=== PATIENT | male | born 1955 | race Caucasian/White ===

== ENCOUNTER → 2016-06-03 | Outpatient (CLI) | payer BC ==
[2016-06-03 09:43] LABS: ALT 95 U/L (21-72); AST 77 U/L (17-59)
== END | disposition home or self-care (01) ==
LOC: LABWHC1 08:42
PROVIDERS: ATTEND Internal Medicine Interventional Cardiology
DX: E78.2 Mixed hyperlipidemia (principal); I10 Essential (primary) hypertension
CPT/HCPCS: 36415; 84450; 84460

== ENCOUNTER → 2016-07-15 | Outpatient (CLI) | payer BC ==
[2016-07-15 07:29] LABS: Basophils # (A) 0.1 k/uL (0-0.2); Basophils % (A) 1 %; CH 31.7; CHCM 34.8; Eosinophils # (A) 0.3 k/uL (0-0.7); Eosinophils % (A) 4 %; HCT 47.4 % (39.0-53.0); HGB 16.1 gm/dL (13.0-17.5); Luc # (Auto) 0.25; Luc % (Auto) 3; Lymphocytes # (A) 1.9 k/uL (1.0-4.8); Lymphocytes % (A) 25 %; MCH 31.1 pg (25.0-35.0); MCHC 33.9 g/dL (31.0-37.0); MCV 91.6 fL (80.0-100.0); Mean Platelet Volume 7.3; Monocytes # (A) 0.5 k/uL (0-1.0); Monocytes % (A) 6 %; Neutrophils # (A) 4.6 k/uL (1.3-7.7); Neutrophils % (A) 61 %; RBC 5.18 m/uL (4.30-5.90); RDW 13.7 % (11.5-15.5); WBC 7.6 k/uL (3.8-10.6); WBC (Perox) 8.33
[2016-07-15 07:44] LABS: ALT 132 U/L (21-72); AST 95 U/L (17-59); Alkaline Phosphatase 105 U/L (38-126); Anion Gap 12 mmol/L; Blood Urea Nitrogen 16 mg/dL (9-20); Calcium 9.3 mg/dL (8.4-10.2); Carbon Dioxide 24 mmol/L (22-30); Chloride 103 mmol/L (98-107); Cholesterol 239 mg/dL (<200); Glucose 292 mg/dL (74-99); HDL Cholesterol 38 mg/dL (40-60); Non-African American GFR(MDRD) >60 (>60 ml/min/1.73 sqM); Potassium 4.4 mmol/L (3.5-5.1); Sodium 139 mmol/L (137-145); Total Bilirubin 1.2 mg/dL (0.2-1.3); Total Protein 7.6 g/dL (6.3-8.2)
[2016-07-15 07:52] LABS: Triglycerides 577 mg/dL (<150)
[2016-07-15 08:28] LABS: Hepatitis C Virus IgG Index 0.03
[2016-07-15 08:56] LABS: Hepatitis C Virus IgG Ab Negative (Negative)
[2016-07-15 12:52] LABS: Prostate Specific Antigen 0.27 ng/mL (0.00-4.00)
== END | disposition home or self-care (01) ==
LOC: LABWHC1 07:05
PROVIDERS: ATTEND Physician Assistant
DX: Z00.00 Encounter for general adult medical examination without abnormal findings (principal)
CPT/HCPCS: 36415; 80053; 80061; 84153; 84439; 84443; 85025; 86803

== ENCOUNTER 2016-07-24 08:17 | Day surgery (SDC) | payer BC ==
[2016-07-22 14:13] VITALS: BMI 37.6
[~2016-07-24 08:17] MED LIST: DEXAMETHASONE SOD PHOSPHATE 4 MG/ML 1 ML VIAL IV ONE; FAMOTIDINE 20 MG/2 ML VIAL IV ONE; HYDROmorphone 1 MG/ML 1 ML SYRINGE IVP PRN; LIDOCAINE 1% 20 ML VIAL (10MG/ML) FOR IV START INTRADERMA PRN; MIDAZOLAM 2 MG/2 ML VIAL IV PRN; ONDANSETRON 4 MG/2 ML VIAL IVP ONE; Pre Op ABX Message 1 EACH MISC MISCELLANE ONE; SCOPOLAMINE 1.5MG/72HR PATCH TRANSDERM ONE
[2016-07-24] MEDS: OXYMETAZOLINE 0.05% NASL SPRAY 15 ML NASAL ONE ×5 (08:47→09:12)
[2016-07-24] MEDS: LACTATED RINGERS 1,000 ML IV SCH ×2 (08:58→14:30)
[2016-07-24 09:04] LABS: Glucose,Whole Blood 259 mg/dL (75-99)
[2016-07-24] MEDS ORDERED: DEXAMETHASONE SOD PHOSPHATE 10 MG/ML 1 ML VIAL IV ONE (09:07)
[2016-07-24 09:11] LABS: INR 1.3 (<1.1); Prothrombin Time 13.1 sec (9.0-12.0)
[2016-07-24] MEDS ORDERED: INSULIN LISPRO (humaLOG) 300 UNIT/3 ML VIAL SQ ONE ×3 (09:20→13:52)
[2016-07-24] MEDS ORDERED: SUCCINYLCHOLINE CHLORIDE 100 MG/5 ML SYR IV ONE (10:17)
[2016-07-24] MEDS ORDERED: LIDOCAINE 1% INJ 10MG/ML (20 ML MDV) ONE (10:17)
[2016-07-24] MEDS ORDERED: fentaNYL (PF) 50 MCG/ML 2 ML AMP ONE (10:17)
[2016-07-24] MEDS ORDERED: MIDAZOLAM 2 MG/2 ML VIAL ONE (10:17)
[2016-07-24] MEDS ORDERED: PROPOFOL 10 MG/ML 20 ML VIAL IV ONE (10:17)
[2016-07-24] MEDS ORDERED: ePHEDrine 50 MG/ML 1 ML AMP ONE (10:17)
[2016-07-24] MEDS ORDERED: BACITRACIN 500 UNIT/GM OINT 28.4 GM TUBE TOPICAL ONE (10:53)
[2016-07-24] MEDS ORDERED: EPINEPHrine 1 MG/ML (MDV) 30 ML VIAL TOPICAL ONE (10:54)
[2016-07-24] MEDS ORDERED: FLUORESCEIN STRIPS 1 MG STRIP MISCELLANE ONE (10:54)
[2016-07-24] MEDS ORDERED: LIDOCAINE 1%-EPI 1:100,000 20 ML VIAL SQ ONE ×2 (10:54)
--- NOTE | 2016-07-24 11:49 | P.OP ---
Date of Procedure: 07/24/16 Preoperative Diagnosis: Chronic sinusitis with left maxillary sinus polyp Postoperative Diagnosis: Same Procedure(s) Performed: Bilateral functional endoscopic sinus surgery with removal of a left maxillary sinus polyp and removal of widespread disease tissue throughout all sinuses. Anesthesia: GETA Surgeon: Neil Forrest Estimated Blood Loss (ml): 40 Pathology: other (Sinonasal) Condition: stable Disposition: PACU Indications for Procedure: Patient has had chronic sinusitis for a long period of time and has failed medical therapy. He has been on multiple antibiotics and get his symptoms of congestion facial pain and pressure etc. persist. After long discussion the patient is requesting sinus surgery. All risks, benefits, and alternative therapies were discussed in detail. The patient sense of smell is significantly diminished and return of the sense of smell is been guaranteed. Operative Findings: Widespread sinonasal disease with a polyp of the left maxillary sinus Description of Procedure: This patient was taken to the operative room and placed in the supine position. A general inhalation anesthetic was administered to the patient by the department of anesthesia with a functioning IV line in place. The patient was monitored throughout the entire case by the department of anesthesia. The eyes were taped shut for protection. The patient was placed in a slight reverse Trendelenburg position. The patient had previously utilize Afrin nasal spray preoperatively. The nose was evaluated and the septum lateral nasal wall and inferior turbinates were injected with lidocaine 1% with epinephrine 1 100,000 bilaterally. Approximately 10 minutes were allowed wait for full vasoconstrictive effects to take place. Attention was then paid to the middle turbinates which were brought medial. The uncinate process was visualized and reflected forward with a Meza probe. With the use of an endoscope utilizing 0 30 and 90 we perform this procedure and utilize this endoscope on a video camera throughout the entire procedure. This was with use of a Cornejo sherry scope. We then took down the uncinate process with a pediatric backbiter and a microdebrider. After the uncinate process was removed the maxillary sinuses were opened widely with use of a straight boss. We open the maxillary sinuses widely and into the maxillary sinuses with endoscopic visualization. Diseased tissue was removed from the maxillary sinuses bilaterally and the sinuses were opened bilaterally. A large polyp was removed from the left maxillary sinus After the maxillary sinuses were opened and diseased tissue was removed attention was then paid to the ethmoid bulla. From a medial to lateral position we took down the ethmoid bulla. We identified the roof of the maxillary sinus and the inferior attachment of the superior turbinate and then took down the basal lamella and into the posterior ethmoid air cells. We did a total ethmoidectomy with use of an up-biting boss. We removed all ethmoid septations bilaterally for total ethmoidectomy including the basal lamella. Excellent results were obtained. Diseased tissue was found in the ethmoid sinuses and removed. We then entered the sphenoid sinus underneath the inferior attachment of the superior turbinate. The sphenoid sinus was opened with the microdebrider and diseased tissue was removed from each sphenoid sinus. This was also done with use of endoscopic visualization. Attention was then paid to the frontal sinus where the frontal sinuses were opened with balloon assistance. We entered the frontal sinuses bilaterally we explored the frontal sinuses bilaterally, and we remove diseased tissue from the frontal sinuses bilaterally. After all sinuses were opened and all sinuses explored and all sinuses had diseased tissue removed , a Merocel sponge pack in a gloved finger was placed. This was placed under both middle turbinates.. Excellent hemostasis was obtained throughout the entire case and very low blood was noted. The skull base and orbital hyde looked good. We reinspected the sinonasal region and no bleeding was encountered. The patient was then taken to postanesthesia recovery in excellent condition. A follow-up is scheduled for next week. The patient is to contact me if there is any problems or issues.
[2016-07-24 11:58] VITALS: TEMP 98.1
[2016-07-24 12:09] LABS: Glucose,Whole Blood 349 mg/dL (75-99)
[2016-07-24 13:44] LABS: Glucose,Whole Blood 357 mg/dL (75-99)
[2016-07-24] MEDS ORDERED: metFORMIN 500 MG TAB PO STA (13:50)
[2016-07-24] MEDS ORDERED: HYDROcodone/APAP 5-325MG 1 EACH TAB PO ONE (14:20)
[2016-07-24 14:58] LABS: Glucose,Whole Blood 367 mg/dL (75-99)
[2016-07-24] MEDS: HYDROmorphone 1 MG/ML 1 ML SYRINGE IVP STA ×2 (15:05→15:14)
[2016-07-24] MEDS ORDERED: ENALAPRILAT 1.25 MG/ML 1 ML VIAL IVP STA (15:17)
[2016-07-24 15:39] VITALS: BP 147/83; PULSE 70; RESP 18
== END 2016-07-24 16:03 | disposition home or self-care (01) ==
LOC: OR 08:17
PROVIDERS: ATTEND Otolaryngology
DX: J32.4 Chronic pansinusitis (principal); J33.8 Other polyp of sinus; Z88.2 Allergy status to sulfonamides; I10 Essential (primary) hypertension; I25.2 Old myocardial infarction; I25.10 Atherosclerotic heart disease of native coronary artery without angina pectoris; E78.5 Hyperlipidemia, unspecified; G47.33 Obstructive sleep apnea (adult) (pediatric); E78.00 Pure hypercholesterolemia, unspecified; H91.90 Unspecified hearing loss, unspecified ear; E07.9 Disorder of thyroid, unspecified; M19.90 Unspecified osteoarthritis, unspecified site; Z72.0 Tobacco use; Z79.01 Long term (current) use of anticoagulants; Z79.84 Long term (current) use of oral hypoglycemic drugs; Z79.52 Long term (current) use of systemic steroids; Z79.899 Other long term (current) drug therapy; Z95.2 Presence of prosthetic heart valve; Z86.73 Personal history of transient ischemic attack (TIA), and cerebral infarction without residual deficits; Z79.51 Long term (current) use of inhaled steroids; Z95.5 Presence of coronary angioplasty implant and graft
CPT/HCPCS: 31255; 88305; 85610; J0171; J2250; J1100; J2405; J2001; J3010; J1170; J0330; J2704

== ENCOUNTER 2016-07-24 16:23 | Emergency (ER) | payer BC ==
[2016-07-24 16:49] VITALS: BP 154/84; PULSE 68; RESP 18; TEMP 98.3
[2016-07-24] MEDS ORDERED: SODIUM CHLORIDE 0.9% 1,000 ML IV ONE (16:50)
[2016-07-24 17:05] LABS: Basophils % (A) 0 %; CH 31.3; CHCM 34.4; Eosinophils # (A) 0.1 k/uL (0-0.7); Eosinophils % (A) 1 %; HCT 46.4 % (39.0-53.0); HDW 2.72; HGB 15.7 gm/dL (13.0-17.5); Luc # (Auto) 0.07; Luc % (Auto) 1; Lymphocytes # (A) 0.8 k/uL (1.0-4.8); Lymphocytes % (A) 7 %; MCH 30.9 pg (25.0-35.0); MCHC 33.9 g/dL (31.0-37.0); MCV 91.2 fL (80.0-100.0); Mean Platelet Volume 8.1; Monocytes # (A) 0.4 k/uL (0-1.0); Monocytes % (A) 4 %; Neutrophils # (A) 10.5 k/uL (1.3-7.7); Neutrophils % (A) 89 %; RBC 5.09 m/uL (4.30-5.90); RDW 13.3 % (11.5-15.5); WBC 11.8 k/uL (3.8-10.6); WBC (Perox) 11.74
[2016-07-24 17:12] LABS: Anion Gap 14 mmol/L; Blood Urea Nitrogen 22 mg/dL (9-20); Calcium 8.9 mg/dL (8.4-10.2); Carbon Dioxide 20 mmol/L (22-30); Chloride 102 mmol/L (98-107); Glucose 326 mg/dL (74-99); Non-African American GFR(MDRD) >60 (>60 ml/min/1.73 sqM); Potassium 4.7 mmol/L (3.5-5.1); Sodium 136 mmol/L (137-145)
--- NOTE | 2016-07-24 17:31 | ED ---
Recheck HPI - General Chief Complaint: Recheck/Abnormal Lab/Rx Stated Complaint: HYPERGLYCEMIA Source: patient Mode of arrival: wheelchair Limitations: no limitations - History of Present Illness Initial Comments: Patient is a 7-year-old male who presents for evaluation for hyperglycemia. Past medical history as below. Patient recently had a sinus procedure performed today. He is noted to have elevated blood glucose levels in the 300s. He has been on chronic steroids. He has a recently diagnosed history of type 2 diabetes and was placed on metformin on Thursday. He has been compliant with the medication. Per chart review, the patient has had elevated blood glucose level since May 2016. Most likely multifactorial with weights, steroids. Patient stated that he gained a significant amount of weight since retiring. He is been on and off steroids for some period of time due to his chronic sinusitis. Patient states that he feels well outside of the pain from the recent surgical procedure today. He denies any significant headaches, overwhelming thirst, chest pain, shortness of breath, palpitations, nausea, vomiting, diarrhea, increased urination, pain or burning with urination. - Related Data Home Medications Medication Instructions Recorded Confirmed Atenolol [Tenormin] 25 mg PO QAM 12/29/13 07/24/16 Warfarin Sodium 8 mg PO DAILY 12/29/13 07/24/16 Cefuroxime Axetil [Ceftin] 500 mg PO BID 07/22/16 07/24/16 Levothyroxine Sodium [Synthroid] 75 mcg PO DAILY 07/22/16 07/24/16 metFORMIN HCL [Glucophage] 500 mg PO BID 07/22/16 07/24/16 predniSONE 30 mg PO DAILY 07/22/16 07/24/16 Hydrocodone/Acetaminophen [[place] 1 - 2 tab PO Q6HR PRN 07/24/16 07/24/16 5-325] Allergies Allergy/AdvReac Type Severity Reaction Status Date / Time Sulfa (Sulfonamide Allergy Rash/Hives,SOB, Verified 07/24/16 17:10 Antibiotics) rapid heartbeat Review of Systems ROS Statement: Those systems with pertinent positive or pertinent negative responses have been documented in the HPI. ROS Other: All systems not noted in ROS Statement are negative. Past Medical History Past Medical History: Chest Pain / Angina, Diabetes Mellitus, Hyperlipidemia, Hypertension, Liver Disease, Myocardial Infarction ([place]), Sleep Apnea/CPAP/BIPAP , Thyroid Disorder Additional Past Medical History / Comment(s): hx BLOOD CLOT LT EYE, FATTY LIVER , ot states he had a staphylococcal infection that ("lasted for several years") at the time of his cardiac valve surgery which was done in [facility]. , rash on back, sepsis 2 yrs ago Last Myocardial Infarction Date:: unknown History of Any Multi-Drug Resistant Organisms: None Reported MDRO Source:: RIGHT ELBOW- STAPH INFECTION culture shows MSSA Past Surgical History: Adenoidectomy, Cardiac Valve Replacement, Cholecystectomy , Heart Catheterization, Tonsillectomy Additional Past Surgical History / Comment(s): ARTIFICIAL AORTIC VALVE 1985 , left eye tear duct surgery, left cataract Past Anesthesia/Blood Transfusion Reactions: Previous Problems w/ Anesthesia, Motion Sickness Additional Past Anesthesia/Blood Transfusion Reaction / Comment(s): severe pain for a couple months post op tear duct surgery Past Psychological History: No Psychological Hx Reported Additional Psychological History / Comment(s): . Smoking Status: Current some day smoker Past Alcohol Use History: Rare Additional Past Alcohol Use History / Comment(s): smokes occationally currently , has smoked since age 31 Past Drug Use History: None Reported - Past Family History Father Family Medical History: Cancer Additional Family Medical History / Comment(s): prostate General Exam Limitations: no limitations General appearance: alert, in no apparent distress Head exam: Present: atraumatic, normocephalic, normal inspection Eye exam: Present: normal appearance, PERRL, EOMI. Absent: scleral icterus, conjunctival injection, periorbital swelling ENT exam: Present: normal exam, mucous membranes moist, other (Packing in his nose. Moist mucous membranes.) Neck exam: Present: normal inspection. Absent: tenderness, meningismus, lymphadenopathy Respiratory exam: Present: normal lung sounds bilaterally. Absent: respiratory distress, wheezes, rales, rhonchi, stridor Cardiovascular Exam: Present: regular rate, normal rhythm, normal heart sounds. Absent: systolic murmur, diastolic murmur, rubs, gallop, clicks GI/Abdominal exam: Present: soft, normal bowel sounds. Absent: distended, tenderness, guarding, rebound, rigid Extremities exam: Present: normal inspection, full ROM, normal capillary refill. Absent: tenderness, pedal edema, joint swelling, calf tenderness Back exam: Present: normal inspection Neurological exam: Present: alert, oriented X3, CN II-XII intact Psychiatric exam: Present: normal affect, normal mood Skin exam: Present: warm, dry, intact, normal color. Absent: rash Course Vital Signs 07/24/16 16:45 Temperature 98.3 F Pulse Rate 68 Respiratory 18 Rate Blood Pressure 154/84 O2 Sat by Pulse 91 L Oximetry Medical Decision Making - Medical Decision Making Patient resents for evaluation of hyperglycemia after surgical procedure today. Known history of type 2 diabetes on metformin. Also has been on chronic steroids which also elevates his blood glucose. We'll order basic labs with IV fluids and reevaluate. 1729: Laboratory findings as below. Glucose is come down to the 320s. Patient states that he feels well. Tolerated ice chips. Had a lengthy discussion with the patient that his blood glucose will be elevated secondary to his diabetes, weight, chronic steroids. He was recently filled another prescription for steroids. Strongly encouraged that the patient watch what he eats and limit his sugar intake. There is a possibility that he may need to go on insulin therapy if his glucose continues to be elevated. We'll leave this decision to his primary care physician which she sees regularly. He will continue to take metformin. If he loses weight and is able to get off steroids his glucose should improve and may be able to get off metformin but again will delay any changes in medications to his primary care physician. Patient is comfortable with above plan and will follow-up with his primary care physician. Discussed signs and symptoms on when to return to the emergency department for further evaluation. Patient is comfortable with plan will be discharged home. Believe his pulse ox is low at 91% secondary to nasal packing. He has no dyspnea shortness of breath or cough. - Lab Data Result diagrams: 07/24/16 16:55 07/24/16 16:55 Lab Results 07/24/16 07/24/16 Range/Units 16:55 16:55 WBC 11.8 H (3.8-10.6) k/uL RBC 5.09 (4.30-5.90) m/uL Hgb 15.7 (13.0-17.5) gm/dL Hct 46.4 (39.0-53.0) % MCV 91.2 (80.0-100.0) fL MCH 30.9 (25.0-35.0) pg MCHC 33.9 (31.0-37.0) g/dL RDW 13.3 (11.5-15.5) % Plt Count 169 (150-450) k/uL Neutrophils % 89 % Lymphocytes % 7 % Monocytes % 4 % Eosinophils % 1 % Basophils % 0 % Neutrophils # 10.5 H (1.3-7.7) k/uL Lymphocytes # 0.8 L (1.0-4.8) k/uL Monocytes # 0.4 (0-1.0) k/uL Eosinophils # 0.1 (0-0.7) k/uL Basophils # 0.0 (0-0.2) k/uL Sodium 136 L (137-145) mmol/L Potassium 4.7 (3.5-5.1) mmol/L Chloride 102 (98-107) mmol/L Carbon Dioxide 20 L (22-30) mmol/L Anion Gap 14 mmol/L BUN 22 H (9-20) mg/dL Creatinine 0.84 (0.66-1.25) mg/dL Est GFR (MDRD) Af Amer >60 (>60 ml/min/1.73 sqM) Est GFR (MDRD) Non-Af >60 (>60 ml/min/1.73 sqM) Glucose 326 H (74-99) mg/dL Calcium 8.9 (8.4-10.2) mg/dL Disposition Clinical Impression: Hyperglycemia, drug-induced Disposition: HOME SELF-CARE Condition: Good Instructions: Diabetic Hyperglycemia (ED) Referrals: Agapito Russell MD [Primary Care Provider] - 1-2 days
== END 2016-07-24 17:50 | disposition home or self-care (01) ==
LOC: EC 16:23
DX: E09.65 Drug or chemical induced diabetes mellitus with hyperglycemia (principal); T38.0X5A Adverse effect of glucocorticoids and synthetic analogues, initial encounter; J32.9 Chronic sinusitis, unspecified; E07.9 Disorder of thyroid, unspecified; I10 Essential (primary) hypertension; Z95.2 Presence of prosthetic heart valve; I25.2 Old myocardial infarction; F17.200 Nicotine dependence, unspecified, uncomplicated; Z86.19 Personal history of other infectious and parasitic diseases; Z79.899 Other long term (current) drug therapy; Z79.52 Long term (current) use of systemic steroids; Z79.01 Long term (current) use of anticoagulants; Z79.84 Long term (current) use of oral hypoglycemic drugs; Z88.2 Allergy status to sulfonamides; Z79.2 Long term (current) use of antibiotics
CPT/HCPCS: 36415; 80048; 85025; 96360; 99284

== ENCOUNTER → 2017-06-15 | Outpatient (CLI) | payer OTHER ==
[2017-06-15 10:22] LABS: ALT 196 U/L (21-72); AST 142 U/L (17-59)
== END | disposition home or self-care (01) ==
LOC: LABWHC1 09:23
PROVIDERS: ATTEND Internal Medicine Interventional Cardiology
DX: I10 Essential (primary) hypertension (principal)
CPT/HCPCS: 36415; 84450; 84460

== ENCOUNTER → 2017-07-13 | Outpatient (CLI) | payer OTHER ==
[2017-07-13 09:01] LABS: ALT 151 U/L (21-72); AST 138 U/L (17-59)
== END | disposition home or self-care (01) ==
LOC: LABWHC1 08:18
PROVIDERS: ATTEND Internal Medicine Interventional Cardiology
DX: R74.8 Abnormal levels of other serum enzymes (principal)
CPT/HCPCS: 36415; 84450; 84460

== ENCOUNTER 2019-11-23 06:19 | Day surgery (SDC) | payer OTHER ==
[~2019-11-23 06:19] MED LIST changes: +ALPRAZolam 0.25 MG TAB PO PRN; +ALPRAZolam 0.5 MG TAB PO PRN; -DEXAMETHASONE SOD PHOSPHATE 4 MG/ML 1 ML VIAL IV ONE; -FAMOTIDINE 20 MG/2 ML VIAL IV ONE; -HYDROmorphone 1 MG/ML 1 ML SYRINGE IVP PRN; -LIDOCAINE 1% 20 ML VIAL (10MG/ML) FOR IV START INTRADERMA PRN; -MIDAZOLAM 2 MG/2 ML VIAL IV PRN; +NITROGLYCERIN SL TABS 0.4 MG TAB SUBLINGUAL PRN; -ONDANSETRON 4 MG/2 ML VIAL IVP ONE; -Pre Op ABX Message 1 EACH MISC MISCELLANE ONE; -SCOPOLAMINE 1.5MG/72HR PATCH TRANSDERM ONE; +SODIUM CHLORIDE 0.9% 1,000 ML in EMPTY BAG 1 BAG IV ONE
[2019-11-23] MEDS ORDERED: ASPIRIN 325 MG TAB PO ONE (07:00)
[2019-11-23] MEDS ORDERED: ATORVASTATIN 80 MG TAB PO ONE (07:00)
[2019-11-23 07:02] LABS: Glucose,Whole Blood 265 mg/dL (75-99)
[2019-11-23 07:17] LABS: African American GFR (CKD) >90 (>60 ml/min/1.73 sqM); Anion Gap 8 mmol/L; Blood Urea Nitrogen 17 mg/dL (9-20); Carbon Dioxide 23 mmol/L (22-30); Chloride 106 mmol/L (98-107); Glucose 270 mg/dL (74-99); Non-African American GFR(CKD) >90 (>60 ml/min/1.73 sqM); Potassium 4.3 mmol/L (3.5-5.1); Sodium 137 mmol/L (137-145)
[2019-11-23] MEDS ORDERED: LIDOCAINE 1% INJ 10MG/ML (20 ML MDV) ONE (07:23)
[2019-11-23] MEDS ORDERED: VERAPAMIL 2.5 MG/ML 2 ML AMP ONE (07:23)
[2019-11-23] MEDS ORDERED: fentaNYL (PF) 50 MCG/ML 2 ML AMP ONE (07:23)
[2019-11-23] MEDS ORDERED: INSULIN ASPART (NovoLOG) 100 UNIT/ML VIAL SQ SCH (07:30)
[2019-11-23 07:34] LABS: INR 1.4 (<1.2); Prothrombin Time 14.1 sec (9.0-12.0)
[2019-11-23 07:35] LABS: Basophils # (A) 0.1 k/uL (0-0.2); Basophils % (A) 1 %; Eosinophils # (A) 0.3 k/uL (0-0.7); Eosinophils % (A) 3 %; HCT 44.3 % (39.0-53.0); HGB 15.5 gm/dL (13.0-17.5); Lymphocytes # (A) 1.8 k/uL (1.0-4.8); Lymphocytes % (A) 23 %; MCH 32.2 pg (25.0-35.0); MCHC 34.9 g/dL (31.0-37.0); MCV 92.1 fL (80.0-100.0); Mean Platelet Volume 9.7; Monocytes # (A) 0.6 k/uL (0-1.0); Monocytes % (A) 8 %; Neutrophils # (A) 4.8 k/uL (1.3-7.7); Neutrophils % (A) 63 %; Platelet Count 118 k/uL (150-450); RBC 4.81 m/uL (4.30-5.90); RDW 12.9 % (11.5-15.5); WBC 7.7 k/uL (3.8-10.6)
[2019-11-23] MEDS ORDERED: HEPARIN SODIUM 1,000 UN/ML (10ML VL) ONE (07:50)
[2019-11-23] MEDS ORDERED: fentaNYL (PF) 50 MCG/ML 2 ML AMP IV ONE (07:52)
[2019-11-23] MEDS ORDERED: LIDOCAINE 1% INJ 10MG/ML (20 ML MDV) SQ ONE (07:54)
[2019-11-23] MEDS ORDERED: VERAPAMIL SYRINGE (5 MG/10 ML) INTRAARTER ONE (07:56)
[2019-11-23] MEDS ORDERED: BIVALIRUDIN BOLUS 250 MG/50 ML IV ONE (08:06)
[2019-11-23] MEDS ORDERED: CLOPIDOGREL 75 MG TAB PO ONE ×2 (08:07→08:10)
[2019-11-23] MEDS ORDERED: CLOPIDOGREL 75 MG TAB ONE (08:08)
[2019-11-23] MEDS ORDERED: BIVALIRUDIN 250 MG in SODIUM CHLORIDE 0.9% 50 ML IV ONE (08:08)
[2019-11-23] MEDS ORDERED: IOPAMIDOL-370 125ML BTL INJ ONE (08:18)
[2019-11-23] MEDS ORDERED: IOPAMIDOL-370 100ML BTL INJ ONE (08:27)
[2019-11-23] MEDS ORDERED: SODIUM CHLORIDE 0.9% 1,000 ML IV SCH (08:45)
[2019-11-23] MEDS ORDERED: RX INFO: IV CONTRAST WAS GIVEN 1 EACH MISC MISCELLANE PRN (08:45)
[2019-11-23] MEDS ORDERED: ZOLPIDEM 5 MG TAB PO PRN (08:45)
[2019-11-23] MEDS ORDERED: NITROGLYCERIN SL TABS 0.4 MG TAB SUBLINGUAL PRN (08:45)
[2019-11-23] MEDS ORDERED: ATROPINE SULFATE 0.1 MG/ML 10ML SYRINGE IV PRN (08:45)
[2019-11-23] MEDS ORDERED: MAG HYDROX/AL HYDROX/SIMETH 30 ML CUP PO PRN (08:45)
[2019-11-23 10:26] LABS: Glucose,Whole Blood 260 mg/dL (75-99)
[2019-11-23] MEDS: INSULIN ASPART (NovoLOG) 100 UNIT/ML VIAL SQ SCH ×4 (10:31→21:16)
[2019-11-23 11:51] LABS: Glucose,Whole Blood 307 mg/dL (75-99)
--- NOTE | 2019-11-23 12:32 | CC ---
CARDIAC CATHETERIZATION REPORT Mr. Swartz is a 64-year-old male with a known history of aortic valve replacement, history of hypertension, hyperlipidemia, diabetes mellitus and chronic tobacco use as well history of coronary artery disease who presented with symptoms of progressive exertional chest discomfort and arm discomfort. In view of that, recommendation made regarding cardiac catheterization. The procedure as well as risks, and complications were discussed with the patient who is in full understanding and agreement. PROCEDURE DETAILS: Patient was brought to the photographic laboratory supervisor in a fasting semisedated state after receiving fentanyl and Benadryl and achieving moderate conscious sedated state. Using Xylocaine anesthesia and Seldinger technique, a 6-Greenlandic sheath was introduced in the right radial artery. Selective right and left coronary angiography performed using 5-Greenlandic 3 and a half bend right and left Shreya catheter. Multiple views of the coronary artery including hemiaxial views obtained. Following that, catheter removed. Images were reviewed. FINDINGS: LEFT MAIN: This is a short size vessel bifurcating into left circumflex, left anterior descending artery, left main coronary artery has no evidence of high-grade stenosis. LEFT ANTERIOR DESCENDING ARTERY: This is a large-sized vessel reaching to the apex. Tapers down in distal third, giving rise to 2 diagonal branches that are small in caliber and diffusely diseased. The LAD in the mid segment has diffuse intimal disease with area of stenosis up to 50%. The proximal segment has 10% to 20% plaque. LEFT CIRCUMFLEX: This is a nondominant vessel giving rise to a very proximal obtuse marginal branch, totally occluded with no antegrade flow. The left circumflex following that is totally occluded with no antegrade flow. RIGHT CORONARY ARTERY: This is a dominant vessel, large in caliber, bifurcating distally PDA and posterolateral segment and branches. The right coronary artery in mid segment has an eccentric 80% stenosis. The rest of the vessel has mild intimal disease without any evidence of high-grade stenosis. COLLATERALS: There are ipsilateral collaterals and contralateral collateral to the obtuse marginal branch. Left ventriculogram not performed. CONCLUSION: 1. Critical stenosis involving the mid right coronary artery. 2. Totally occluded 1st and 2nd obtuse marginal branch. 3. Diffuse intimal disease of mild to moderate degree in the LAD. RECOMMENDATIONS: In view of findings and anatomy, I recommend proceeding with angioplasty and stenting of the right coronary artery and consider staged procedure to the obtuse marginal branch. Those findings and recommendation were discussed with the patient and he is in full understanding and agreement. MMMIGUELANGELL / IJN: [id number] /
--- NOTE | 2019-11-23 12:41 | PTCA ---
PERCUTANEOUSTRANS CORORONARY ANGIOGRAPHY Mr. Swartz 64-year-old male with a known history of coronary artery disease who presented with symptoms of angina pectoris, underwent cardiac catheterization was found to have critical stenosis involving the mid right coronary artery. In view of that, recommendation made regarding angioplasty and stenting. The procedures, risks, and complication were discussed with the patient who is in full understanding and agreement. PROCEDURE DETAILS: A 6-Turkish FR4 guiding catheter introduced in the system. After cannulating the right coronary ostium, a 0.014 balanced medium weight J-wire was advanced across the lesion and positioned distally. Following that, a 3.0 x 12 mm Trek balloon was advanced and one inflation at 8 atmospheres was done. Following that, 4.0 x 18 mm Xience [place] stent was deployed. It was dilated at 16 atmospheres. After the last inflation, after appropriate wait, the balloon and the guidewire were withdrawn back in the guiding catheter. Images were obtained repeated. Those images reveal stable successful stent stenting. At that point, the guiding catheter, the balloon and the guidewire were removed. The sheath was removed. Hemostasis was obtained with deployment of a TR band. There was no immediate complication. Patient is returned to his room in stable condition. Of note, the patient received Angiomax per protocol as well as oral loading dose of clopidogrel. He had no chest discomfort with mild EKG changes that resolved at the end of the procedure. RESULTS: Successful stenting of the mid right coronary artery with reduction of stenosis from 80% to 0%. RECOMMENDATIONS: Patient will be continued on aspirin, Plavix and statin. He will be re-initiated on Coumadin and be reevaluated undergoing percutaneous revascularization of his totally occluded obtuse marginal branch. Those findings and recommendations were discussed with the patient and his family and they are in full understanding and agreement. Duration of procedure is 30 minutes. MMODL / IJN: [id number] /
--- NOTE | 2019-11-23 12:47 | LTR ---
DATE OF SERVICE: 11/23/[address] Russell: I had the pleasure of performing cardiac catheterization and coronary angioplasty and stenting on Mr. Swartz at [facility] on November 22. A full copy of procedure note will be forwarded to you. In brief, he was found to have critical stenosis involving the mid right coronary artery with totally occluded 1st and 2nd obtuse marginal branch. He underwent successful stenting of the right coronary artery and he will be re- evaluated at a later time regarding undergoing percutaneous revascularization of his obtuse marginal branch. I will keep you updated on his progress. Thank you again for allowing me to participate in his care. Please feel free to call for any questions. Sincerely, ARTEMIO / DIVYAN: [id number] /
[2019-11-23 16:50] LABS: Glucose,Whole Blood 174 mg/dL (75-99)
[2019-11-23] MEDS: ATORVASTATIN 40 MG TAB PO SCH (17:00)
[2019-11-23] MEDS: EZETIMIBE 10 MG TAB PO SCH (17:01)
[2019-11-23] MEDS: LINAGLIPTIN 5 MG TABLET PO SCH (17:01)
[2019-11-23] MEDS: ASPIRIN 81 MG PO SCH (17:02)
[2019-11-23] MEDS ORDERED: ISOSORBIDE MONONITRATE ER 30 MG TAB.ER.24H PO SCH (18:00)
[2019-11-23] MEDS ORDERED: WARFARIN 7.5 MG TAB PO ONE (18:00)
[2019-11-23 20:29] LABS: Glucose,Whole Blood 162 mg/dL (75-99)
[2019-11-24 06:25] LABS: Glucose,Whole Blood 198 mg/dL (75-99)
[2019-11-24] MEDS: INSULIN ASPART (NovoLOG) 100 UNIT/ML VIAL SQ SCH (06:26)
[2019-11-24] MEDS ORDERED: LEVOTHYROXINE 75 MCG TAB PO SCH (06:30)
[2019-11-24 07:32] LABS: INR 1.4 (<1.2); Prothrombin Time 13.5 sec (9.0-12.0)
[2019-11-24 07:44] LABS: African American GFR (CKD) >90 (>60 ml/min/1.73 sqM); Anion Gap 9 mmol/L; Blood Urea Nitrogen 12 mg/dL (9-20); Calcium 8.9 mg/dL (8.4-10.2); Carbon Dioxide 23 mmol/L (22-30); Chloride 104 mmol/L (98-107); Glucose 197 mg/dL (74-99); Non-African American GFR(CKD) >90 (>60 ml/min/1.73 sqM); Potassium 4.3 mmol/L (3.5-5.1); Sodium 136 mmol/L (137-145)
[2019-11-24] MEDS: LINAGLIPTIN 5 MG TABLET PO SCH (09:39)
[2019-11-24] MEDS: EZETIMIBE 10 MG TAB PO SCH (09:39)
[2019-11-24] MEDS: ATORVASTATIN 40 MG TAB PO SCH (09:39)
[2019-11-24] MEDS: ASPIRIN 81 MG PO SCH (09:39)
[2019-11-24] MEDS: CLOPIDOGREL 75 MG TAB PO SCH ×2 (09:39→10:32)
[2019-11-24 10:29] VITALS: BMI 37.8
[2019-11-24 10:31] VITALS: BP 133/81; PULSE 58; RESP 18; TEMP 97.9
--- NOTE | 2019-11-24 14:03 | PN ---
PROGRESS NOTE Mr. Swartz is a 64-year-old male status post aortic valve replacement, history of coronary artery disease who presented with unstable angina, underwent cardiac catheterization, was found to have critical stenosis in the mid right coronary artery with totally occluded obtuse marginal branch 1 and 2. He underwent stenting of the right coronary artery. He is doing well this morning. His breathing is stable. He denies any chest pain. No dizziness. No palpitation. No nausea. He continued to be on aspirin 81 mg daily, Lipitor 40 mg daily, Plavix 75 mg daily, Zetia 10 mg daily, isosorbide mononitrate 30 mg daily, Tradjenta, and started back on Coumadin. PHYSICAL EXAMINATION: Blood pressure 109/70 with a heart rate in 50s. LUNGS: Clear. HEART: Regular rhythm S1, S2. No S3 with prosthetic aortic sound and a systolic ejection murmur. No diastolic murmur. ABDOMEN: Soft, nontender. Positive bowel sounds. EXTREMITIES: No edema. Right radial pulse intact. EKG revealed no acute changes. IMPRESSION: 1. Status post stenting of the right coronary artery. 2. Totally occluded obtuse marginal branch 1 and 2. 3. Status post aortic valve replacement. 4. Hypertension. 5. Hyperlipidemia. 6. Diabetes mellitus. 7. History of chronic tobacco use. RECOMMENDATION: Patient will be discharged home today and be re-evaluated regarding the need to undergo revascularization of his left circumflex territory. ARTEMIO / DIVYAN: [id number] /
== END 2019-11-24 11:20 | disposition home or self-care (01) ==
LOC: CATHCVL 06:19 → 3SCARD 08:24 → CATHCVL 11-24 11:20
PROVIDERS: ATTEND Internal Medicine Interventional Cardiology
DX: I25.110 Atherosclerotic heart disease of native coronary artery with unstable angina pectoris (principal); I25.82 Chronic total occlusion of coronary artery; R07.89 Other chest pain; M79.602 Pain in left arm; R68.84 Jaw pain; M54.2 Cervicalgia; R09.89 Other specified symptoms and signs involving the circulatory and respiratory systems; I10 Essential (primary) hypertension; E11.9 Type 2 diabetes mellitus without complications; E78.00 Pure hypercholesterolemia, unspecified; E78.2 Mixed hyperlipidemia; F17.210 Nicotine dependence, cigarettes, uncomplicated; I44.0 Atrioventricular block, first degree; E66.9 Obesity, unspecified; Z68.37 Body mass index [BMI] 37.0-37.9, adult; Z79.84 Long term (current) use of oral hypoglycemic drugs; Z79.890 Hormone replacement therapy; Z79.899 Other long term (current) drug therapy; Z79.01 Long term (current) use of anticoagulants; Z88.2 Allergy status to sulfonamides; Z95.2 Presence of prosthetic heart valve
CPT/HCPCS: 93454; 85347; 80048 ×2; 85025; 85610 ×2; C9600; C1769 ×2; C1887; C1725; C1874; C1894; J2001; J3010; J0583; Q9967 ×2

== ENCOUNTER 2019-12-13 06:26 | Day surgery (SDC) | payer OTHER ==
[2019-12-09 10:14] VITALS: BMI 36.9
[~2019-12-13 06:26] MED LIST changes: +ASPIRIN 325 MG TAB PO STA; +ATORVASTATIN 80 MG TAB PO STA
[2019-12-13 06:59] LABS: Glucose,Whole Blood 192 mg/dL (75-99)
[2019-12-13] MEDS ORDERED: VERAPAMIL 2.5 MG/ML 2 ML AMP ONE (07:12)
[2019-12-13] MEDS ORDERED: LIDOCAINE 1% INJ 10MG/ML (20 ML MDV) ONE (07:12)
[2019-12-13 07:19] LABS: INR 1.6 (<1.2); Prothrombin Time 15.6 sec (9.0-12.0)
[2019-12-13] MEDS ORDERED: fentaNYL (PF) 50 MCG/ML 2 ML AMP ONE (07:29)
[2019-12-13] MEDS ORDERED: fentaNYL (PF) 50 MCG/ML 2 ML AMP IVP ONE (07:46)
[2019-12-13] MEDS ORDERED: LIDOCAINE 1% INJ 10MG/ML (20 ML MDV) SQ ONE (07:50)
[2019-12-13] MEDS ORDERED: VERAPAMIL SYRINGE (5 MG/10 ML) INTRAARTER ONE (07:51)
[2019-12-13] MEDS ORDERED: BIVALIRUDIN BOLUS 250 MG/50 ML IV ONE (07:56)
[2019-12-13] MEDS ORDERED: BIVALIRUDIN 250 MG in SODIUM CHLORIDE 0.9% 50 ML IV ONE ×2 (07:57→08:38)
[2019-12-13] MEDS ORDERED: IOPAMIDOL-370 100ML BTL INJ ONE ×6 (08:14→09:21)
[2019-12-13] MEDS ORDERED: NITROGLYCERIN 1000MCG/10ML SYRINGE INTRACORON ONE (08:42)
[2019-12-13] MEDS ORDERED: MIDAZOLAM 2 MG/2 ML VIAL IV ONE (09:19)
[2019-12-13] MEDS ORDERED: ATROPINE SULFATE 0.1 MG/ML 10ML SYRINGE IV PRN (09:35)
[2019-12-13] MEDS ORDERED: NITROGLYCERIN SL TABS 0.4 MG TAB SUBLINGUAL PRN (09:35)
[2019-12-13] MEDS ORDERED: RX INFO: IV CONTRAST WAS GIVEN 1 EACH MISC MISCELLANE PRN (09:35)
[2019-12-13] MEDS ORDERED: ZOLPIDEM 5 MG TAB PO PRN (09:35)
[2019-12-13] MEDS ORDERED: MAG HYDROX/AL HYDROX/SIMETH 30 ML CUP PO PRN (09:35)
[2019-12-13] MEDS ORDERED: SODIUM CHLORIDE 0.9% 1,000 ML IV SCH (09:45)
--- NOTE | 2019-12-13 10:35 | PTCA ---
PERCUTANEOUSTRANS CORORONARY ANGIOGRAPHY Mr. Swartz is a 64-year-old male with known history of CAD, history of aortic valve replacement, who presented recently with a non STEMI underwent stenting of the right coronary artery was found to have occluded obtuse marginal branch. A straight cath obtuse marginal branch 1 and distal left circ mid left circumflex in view of that, recommendation regarding angioplasty and stenting. The procedures, risks, and complication were discussed with the patient who is in full understanding and agreement. PROCEDURE: Patient was brought to clinical lab specialist in a fasting semi-sedated state after receiving fentanyl and Benadryl and achieving moderate conscious sedated state. Using Xylocaine anesthesia and Seldinger technique, a 6-Barbadian sheath was introduced in the right radial artery. Six-Barbadian EBU 3.75 guiding catheter introduced into the system after cannulating the left main. A 0.014 balanced medium weight J-wire was attempted to advance to the distal left circumflex. That wire was unsuccessful. That wire was removed and with the help of a straight Super Cross catheter, a Whisper J-wire was positioned distally. Following that, a 2.0 x 12 mm Trek balloon was advanced. Multiple inflation at 10 atmospheres were done at maximum of 10 atmospheres were done following that the balloon was removed and the wire was exchanged over the Fine Cross to a BMW J and that was positioned distally. Following that, a 2.5 x 28 mm Xience [place] stent was deployed post at 16 at 14 atmospheres. Following this per proximal to it, a 2.5 x 12 mm Xience [place] stent was deployed post at 16 atmospheres after the last inflation, after appropriate wait the balloon was withdrawn back in the guiding catheter. Subsequently, a as multiple attempts to cross the total occlusion of the first obtuse marginal branch using a 0.014 balanced medium weight J-wire, 0.014 Whisper J-wire with the help of a super cross 545 degree were unsuccessful in crossing the lesion in view of the angulation at the chronic occlusion. At that point, the guiding catheter, the balloon guide removed the sheath was removed hemostasis was obtained with deployment of TR band. There was no immediate complication patient is returned to his room in stable condition. Of note, the patient had no chest discomfort or significant EKG changes with the inflation. He received Angiomax per protocol and was continued on clopidogrel. RESULTS: 1. Successful stenting of the totally occluded mid left circumflex with reduction of stenosis from 100% to 0%. There was slow flow in the obtuse marginal branch. 2. Unsuccessful recanalization of the first obtuse marginal branch. RECOMMENDATION: In view of finding anatomy and recommendation at this point, I would recommend continue dual antiplatelet treatment. The procedures, risks, and complications were discussed with the patient, who was in full understanding and agreement. Depending on his progress, further recommendation will be made. Procedure is not those recommendation were discussed with the patient his family and they are in full understanding and agreement. Duration of procedure is 97 minutes. MMODL / IJN: [id number] /
[2019-12-13] MEDS ORDERED: WARFARIN 5 MG TAB PO ONE (18:00)
[2019-12-14 02:38] VITALS: RESP 18
[2019-12-14 03:14] LABS: Glucose,Whole Blood 162 mg/dL (75-99)
[2019-12-14 04:24] VITALS: BP 108/66; PULSE 58; TEMP 98.8
[2019-12-14] MEDS ORDERED: LEVOTHYROXINE 75 MCG TAB PO SCH (06:30)
[2019-12-14 07:17] LABS: Glucose,Whole Blood 208 mg/dL (75-99)
[2019-12-14 07:55] LABS: African American GFR (CKD) >90 (>60 ml/min/1.73 sqM); Anion Gap 7 mmol/L; Blood Urea Nitrogen 17 mg/dL (9-20); Calcium 8.8 mg/dL (8.4-10.2); Carbon Dioxide 27 mmol/L (22-30); Chloride 102 mmol/L (98-107); Glucose 183 mg/dL (74-99); Non-African American GFR(CKD) >90 (>60 ml/min/1.73 sqM); Potassium 4.6 mmol/L (3.5-5.1); Sodium 136 mmol/L (137-145)
[2019-12-14 08:04] LABS: INR 1.4 (<1.2); Prothrombin Time 13.5 sec (9.0-12.0)
[2019-12-14] MEDS ORDERED: LINAGLIPTIN 5 MG TABLET PO SCH (09:00)
[2019-12-14] MEDS ORDERED: EZETIMIBE 10 MG TAB PO SCH (09:00)
[2019-12-14] MEDS ORDERED: ISOSORBIDE MONONITRATE ER 30 MG TAB.ER.24H PO SCH (09:00)
[2019-12-14] MEDS ORDERED: CLOPIDOGREL 75 MG TAB PO SCH ×2 (09:00)
[2019-12-14] MEDS ORDERED: ASPIRIN 81 MG PO SCH (09:00)
[2019-12-14] MEDS ORDERED: ATORVASTATIN 40 MG TAB PO SCH (09:00)
--- NOTE | 2019-12-14 09:18 | PN ---
PROGRESS NOTE Mr. Swartz is a 64-year-old male with a known history of coronary artery disease, status post aortic valve replacement, percutaneous revascularization of right coronary artery. Yesterday he underwent recanalization of a totally occluded mid left circumflex. He had an occluded first obtuse marginal branch that could not be recanalized. He is feeling well otherwise. He is denying any chest pain, his breathing has been stable. He denies any dizziness, palpitation. He denies any nausea. He continues to be on aspirin once a day, atenolol 12.5 mg daily, Lipitor 40 mg daily, Plavix 75 mg daily, Zetia 10 mg daily, isosorbide mononitrate 30 mg daily, Tradjenta and was started back on his Coumadin. PHYSICAL EXAMINATION: Blood pressure 108/60 with a heart rate in the 60s. LUNGS: Clear. HEART: Regular rate and rhythm, S1, S2. No S3 with prosthetic aortic sound and systolic murmur, no diastolic murmur. ABDOMEN: Soft, nontender, positive bowel sounds, no organomegaly. EXTREMITIES: No edema, right radial pulse intact. EKG revealed no acute changes. IMPRESSION: 1. Status post stenting of the mid left circumflex. 2. Prior stenting of the right coronary artery. 3. Status post aortic valve replacement. 4. Hypertension. 5. Hyperlipidemia. 6. Diabetes mellitus. RECOMMENDATION: Patient will be discharged home today and followed as an outpatient. He will resume his Coumadin today and re-initiate metformin in one week. MMODL / IJN: [id number] /
== END 2019-12-14 08:54 | disposition home or self-care (01) ==
LOC: CATHCVL 06:26 → 3NCARDOBS 09:32 → CATHCVL 12-14 08:54
PROVIDERS: ATTEND Internal Medicine Interventional Cardiology
DX: I25.10 Atherosclerotic heart disease of native coronary artery without angina pectoris (principal); I25.82 Chronic total occlusion of coronary artery; I25.2 Old myocardial infarction; I10 Essential (primary) hypertension; E11.9 Type 2 diabetes mellitus without complications; I08.1 Rheumatic disorders of both mitral and tricuspid valves; I44.0 Atrioventricular block, first degree; F17.210 Nicotine dependence, cigarettes, uncomplicated; E78.2 Mixed hyperlipidemia; Z95.2 Presence of prosthetic heart valve; Z95.5 Presence of coronary angioplasty implant and graft; Z79.82 Long term (current) use of aspirin; Z79.899 Other long term (current) drug therapy; Z79.02 Long term (current) use of antithrombotics/antiplatelets; Z79.01 Long term (current) use of anticoagulants; Z79.84 Long term (current) use of oral hypoglycemic drugs; Z79.890 Hormone replacement therapy
CPT/HCPCS: 85347; 80048; 85610 ×2; C9600; C1769 ×4; C1887 ×2; C1725; C1874; C1894; J2250; J2001; J3010; J0583; Q9967

== ENCOUNTER 2020-06-22 07:27 | Inpatient (IN) | payer OTHER ==
[2020-06-22] MEDS ORDERED: SODIUM CHLORIDE 0.9% 1,000 ML IV STA (07:38)
[2020-06-22] MEDS ORDERED: DILTIAZEM DRIP BOLUS FROM BAG 1 MG SOLN IV ONE (07:38)
[2020-06-22] MEDS ORDERED: ASPIRIN 81 MG PO STA (07:38)
[2020-06-22] MEDS ORDERED: DILTIAZEM 125 MG in SODIUM CHLORIDE 0.9% 100 ML IV SCH (07:45)
--- NOTE | 2020-06-22 07:50 | ED ---
Arrhythmia/Palpitations HPI - General Chief Complaint: Arrhythmia/Palpitations Stated Complaint: SVT/AFIB Time Seen by Provider: 06/22/20 07:37 Source: patient Mode of arrival: EMS Limitations: no limitations - History of Present Illness Initial Comments: This 65-year-old male presents with a complaint of some pain into his head, neck, and bilateral upper chest which occurred just shortly prior to arrival. He does complain of palpitations and feeling as though his heart was beating very fast. He describes the pain as pressure in nature. He did call EMS and they relate that his heart rate was fairly elevated with the highest rate being 160. The patient took 2 nitroglycerin prior to EMS arrival and is Susy blood pressure was 90/60. He relates a cardiac history of previous valve surgery in 1985 and has been on coumadin since. He had 2 cardiac stents this past summer. There is no leg pain or swelling. He denies any history of previous atrial fibrillation. His manager port is Dr. Norman. - Related Data Home Medications Medication Instructions Recorded Confirmed Warfarin Sodium 8 mg PO SA 12/29/13 06/22/20 Levothyroxine Sodium [Synthroid] 75 mcg PO DAILY 07/22/16 06/22/20 metFORMIN HCL [Glucophage] 500 mg PO BID 07/22/16 06/22/20 Atorvastatin [Lipitor] 40 mg PO DAILY 11/18/19 06/22/20 Isosorbide Mononitrate ER [Imdur] 30 mg PO DAILY 11/18/19 06/22/20 Warfarin [Coumadin] 10 mg PO SUMOTUWETHFR 11/18/19 06/22/20 sitaGLIPtin PHOSPHATE [Januvia] 100 mg PO DAILY 11/21/19 06/22/20 Ezetimibe [Zetia] 10 mg PO DAILY 11/23/19 06/22/20 Amoxic-Pot Clav 875-125Mg 1 tab PO Q12HR 06/22/20 06/22/20 [Augmentin 875-125] Ascorbic Acid [Vitamin C] 1,000 mg PO TID 06/22/20 06/22/20 Cholecalciferol [Vitamin D3 (25 25 mcg PO DAILY 06/22/20 06/22/20 Mcg = 1000 Iu)] Multivitamin/Iron/Folic Acid 1 tab PO DAILY 01/22/21 01/22/21 [Centrum Adults Tablet] Zinc 200 mg PO DAILY 06/22/20 06/22/20 atenoloL [Tenormin] 25 mg PO QAM 06/22/20 06/22/20 Previous Rx's Medication Instructions Recorded Clopidogrel [Plavix] 75 mg PO DAILY #90 tab 11/24/19 Allergies Allergy/AdvReac Type Severity Reaction Status Date / Time Sulfa (Sulfonamide Allergy Rash/Hives,SOB, Verified 06/22/20 08:28 Antibiotics) rapid heartbeat Review of Systems ROS Statement: Those systems with pertinent positive or pertinent negative responses have been documented in the HPI. ROS Other: All systems not noted in ROS Statement are negative. Past Medical History Past Medical History: Chest Pain / Angina, Diabetes Mellitus, Hyperlipidemia, Liver Disease, Myocardial Infarction ([place]), Osteoarthritis ([place]), Sleep Apnea/ CPAP/BIPAP, Thyroid Disorder Additional Past Medical History / Comment(s): hx of BLOOD CLOT LT EYE, FATTY LIVER, " states he had a staphylococcal infection that ("lasted for several years") at the time of his cardiac valve surgery , rash on back, SEPSIS 2013, USES C PAP Last Myocardial Infarction Date:: unknown History of Any Multi-Drug Resistant Organisms: None Reported MDRO Source:: RIGHT ELBOW- STAPH INFECTION culture shows MSSA Past Surgical History: Adenoidectomy, Cardiac Valve Replacement, Cholecystectomy, Heart Catheterization, Heart Catheterization With Stent, Tonsillectomy Additional Past Surgical History / Comment(s): MECHANICAL AORTIC VALVE 1985 , left eye tear duct surgery, left cataract surgery , right arm with plate and scr ews, one cardiac stent Past Anesthesia/Blood Transfusion Reactions: Motion Sickness Additional Past Anesthesia/Blood Transfusion Reaction / Comment(s): severe pain for a couple months post op tear duct surgery Date of Last Stent Placement:: 11/23/19 Past Psychological History: No Psychological Hx Reported Smoking Status: Former smoker Past Alcohol Use History: Rare Past Drug Use History: None Reported - Past Family History Father Family Medical History: Cancer Additional Family Medical History / Comment(s): prostate General Exam - General Exam Comments Initial Comments: GENERAL: The patient is well nourished and well hydrated. VITAL SIGNS: Heart rate, blood pressure, respiratory rate reviewed as recorded in nurse's notes. EYES: Pupils are round and reactive. Extraocular movements are intact. No conjunctival / lid redness or swelling. ENT: No external evidence of injury, swelling, or ecchymosis. Airway is patent. Throat is clear. NECK: Nontender. No swelling or evidence of injury. No subcutaneous emphysema. Trachea is midline. No thyroid mass. HEART: Irregular tachycardic rhythm. Good peripheral pulses. LUNGS/CHEST: Breath sounds clear and equal bilaterally. No rales, rhonchi, or wheezes. No ecchymosis, subcutaneous emphysema, or tenderness. ABDOMEN: Abdomen soft without tenderness. No palpable masses or organomegaly. No peritoneal signs. No abdominal wall swelling or ecchymosis. EXTREMITIES: No extremity tenderness. Normal muscle tone and function. No thoracolumbar tenderness. NEUROLOGIC: Sensation is grossly intact. Cranial nerve exam reveals face is symmetrical, tongue is midline, speech is clear. SKIN: No abrasions or ecchymosis is noted. No induration or masses noted. PSYCHIATRIC: Alert and oriented. Appropriate behavior and judgment. Limitations: no limitations Course Vital Signs 06/22/20 06/22/20 06/22/20 07:29 08:00 08:30 Temperature 98.3 F Pulse Rate 109 H 100 88 Respiratory 18 18 18 Rate Blood Pressure 120/98 97/76 104/74 O2 Sat by Pulse 96 97 96 Oximetry Medical Decision Making - Medical Decision Making The patient is seen and examined. All diagnostics are reviewed. The EKG shows evidence of atrial fibrillation with rapid ventricular response at a rate of 149. There is some diffuse ST depressions noted. The QRS duration is 120, QTc interval is elevated at 507. The patient is started on a Cardizem drip and also receives a Cardizem bolus. He also receives an aspirin orally and some IV fluids. Laboratories reviewed and his blood sugar is slightly elevated and his white blood cell count is slightly elevated. His INR is 2.6. The patient had a chest x-ray which does not show any acute process. His heart rate decreased with the Cardizem down to between 100-110 on recheck. He is not converted yet back from the atrial fibrillation. He states that all of his symptoms have resolved on recheck. It is felt as though he would benefit from admission to the hospital to the telemetry unit with cardiology to consult. He is agreeable. Case is discussed with [place], nurse practitioner and he is agreeable with admission. 30 minutes of critical care time is utilized and the treatment of the patient. - Lab Data Result diagrams: 06/22/20 07:56 06/22/20 07:56 Lab Results 06/22/20 06/22/20 06/22/20 Range/Units 07:56 07:56 07:56 WBC 13.1 H (3.8-10.6) k/uL RBC 5.19 (4.30-5.90) m/uL Hgb 16.4 (13.0-17.5) gm/dL Hct 46.5 (39.0-53.0) % MCV 89.6 (80.0-100.0) fL MCH 31.6 (25.0-35.0) pg MCHC 35.2 (31.0-37.0) g/dL RDW 13.2 (11.5-15.5) % Plt Count 162 (150-450) k/uL MPV 7.8 Neutrophils % 75 % Lymphocytes % 14 % Monocytes % 6 % Eosinophils % 2 % Basophils % 1 % Neutrophils # 9.9 H (1.3-7.7) k/uL Lymphocytes # 1.9 (1.0-4.8) k/uL Monocytes # 0.8 (0-1.0) k/uL Eosinophils # 0.3 (0-0.7) k/uL Basophils # 0.1 (0-0.2) k/uL PT 23.5 H (9.0-12.0) sec INR 2.4 H (<1.2) APTT 30.8 H (22.0-30.0) sec Sodium 134 L (137-145) mmol/L Potassium 4.0 (3.5-5.1) mmol/L Chloride 102 (98-107) mmol/L Carbon Dioxide 24 (22-30) mmol/L Anion Gap 8 mmol/L BUN 19 (9-20) mg/dL Creatinine 0.80 (0.66-1.25) mg/dL Est GFR (CKD-EPI)AfAm >90 (>60 ml/min/1.73 sqM) Est GFR (CKD-EPI)NonAf >90 (>60 ml/min/1.73 sqM) Glucose 295 H (74-99) mg/dL Calcium 9.5 (8.4-10.2) mg/dL Magnesium 1.7 (1.6-2.3) mg/dL Total Bilirubin 1.3 (0.2-1.3) mg/dL AST 43 (17-59) U/L ALT 60 H (4-49) U/L Alkaline Phosphatase 86 (38-126) U/L Troponin I (0.000-0.034) ng/mL Total Protein 6.5 (6.3-8.2) g/dL Albumin 3.9 (3.5-5.0) g/dL 06/22/20 Range/Units 07:56 WBC (3.8-10.6) k/uL RBC (4.30-5.90) m/uL Hgb (13.0-17.5) gm/dL Hct (39.0-53.0) % MCV (80.0-100.0) fL MCH (25.0-35.0) pg MCHC (31.0-37.0) g/dL RDW (11.5-15.5) % Plt Count (150-450) k/uL MPV Neutrophils % % Lymphocytes % % Monocytes % % Eosinophils % % Basophils % % Neutrophils # (1.3-7.7) k/uL Lymphocytes # (1.0-4.8) k/uL Monocytes # (0-1.0) k/uL Eosinophils # (0-0.7) k/uL Basophils # (0-0.2) k/uL PT (9.0-12.0) sec INR (<1.2) APTT (22.0-30.0) sec Sodium (137-145) mmol/L Potassium (3.5-5.1) mmol/L Chloride (98-107) mmol/L Carbon Dioxide (22-30) mmol/L Anion Gap mmol/L BUN (9-20) mg/dL Creatinine (0.66-1.25) mg/dL Est GFR (CKD-EPI)AfAm (>60 ml/min/1.73 sqM) Est GFR (CKD-EPI)NonAf (>60 ml/min/1.73 sqM) Glucose (74-99) mg/dL Calcium (8.4-10.2) mg/dL Magnesium (1.6-2.3) mg/dL Total Bilirubin (0.2-1.3) mg/dL AST (17-59) U/L ALT (4-49) U/L Alkaline Phosphatase (38-126) U/L Troponin I 0.030 (0.000-0.034) ng/mL Total Protein (6.3-8.2) g/dL Albumin (3.5-5.0) g/dL Disposition Clinical Impression: Atrial fibrillation with rapid ventricular response, Chest pain, Unstable angina, Leukocytosis, Hyperglycemia Disposition: ADMITTED IP TO THIS HOSP Condition: Fair Is patient prescribed a controlled substance at d/c from ED?: No Referrals: Agapito Russell MD [Primary Care Provider] - 1-2 days Time of Disposition: :07 Decision Date: 06/22/20 Decision Time: 09:07
[2020-06-22 08:06] LABS: Basophils # (A) 0.1 k/uL (0-0.2); Basophils % (A) 1 %; Eosinophils # (A) 0.3 k/uL (0-0.7); Eosinophils % (A) 2 %; HCT 46.5 % (39.0-53.0); HGB 16.4 gm/dL (13.0-17.5); Lymphocytes # (A) 1.9 k/uL (1.0-4.8); Lymphocytes % (A) 14 %; MCH 31.6 pg (25.0-35.0); MCHC 35.2 g/dL (31.0-37.0); MCV 89.6 fL (80.0-100.0); Mean Platelet Volume 7.8; Monocytes # (A) 0.8 k/uL (0-1.0); Monocytes % (A) 6 %; Neutrophils # (A) 9.9 k/uL (1.3-7.7); Neutrophils % (A) 75 %; Platelet Count 162 k/uL (150-450); RBC 5.19 m/uL (4.30-5.90); RDW 13.2 % (11.5-15.5); WBC 13.1 k/uL (3.8-10.6)
[2020-06-22 08:22] LABS: INR 2.4 (<1.2); Prothrombin Time 23.5 sec (9.0-12.0)
[2020-06-22 08:23] LABS: Partial Thromboplastin Time 30.8 sec (22.0-30.0)
[2020-06-22 08:24] LABS: ALT 60 U/L (4-49); AST 43 U/L (17-59); African American GFR (CKD) >90 (>60 ml/min/1.73 sqM); Albumin 3.9 g/dL (3.5-5.0); Alkaline Phosphatase 86 U/L (38-126); Anion Gap 8 mmol/L; Blood Urea Nitrogen 19 mg/dL (9-20); Calcium 9.5 mg/dL (8.4-10.2); Carbon Dioxide 24 mmol/L (22-30); Chloride 102 mmol/L (98-107); Glucose 295 mg/dL (74-99); Magnesium 1.7 mg/dL (1.6-2.3); Non-African American GFR(CKD) >90 (>60 ml/min/1.73 sqM); Sodium 134 mmol/L (137-145); Total Bilirubin 1.3 mg/dL (0.2-1.3); Total Protein 6.5 g/dL (6.3-8.2)
--- NOTE | 2020-06-22 08:29 | XR ---
EXAMINATION TYPE: XR chest 2V DATE OF EXAM: 06/22/2020 COMPARISON: 12/30/2013 TECHNIQUE: PA and lateral views submitted. HISTORY: Chest pain FINDINGS: The lungs are clear and there is no pneumothorax, pleural effusion, or focal pneumonia. Heart is en larged. Postoperative change. There is ectasia of the aorta. Hypertrophic and degenerative change of the spine. Surgical clip in the abdomen. IMPRESSION: 1. No acute process.
[2020-06-22] MEDS ORDERED: NITROGLYCERIN SL TABS 0.4 MG TAB SUBLINGUAL PRN (09:10)
--- NOTE | 2020-06-22 10:20 | P.HPIM ---
History of Present Illness H&P Date: 06/22/20 Chief Complaint: Palpitations/diaphoresis/shortness of breath 65-year-old male head to intermittent episodes of palpitations with associated chest discomfort radiating to jaw, diaphoresis and nausea throughout the night last night. Prior to EMS arriving patient took to sublingual nitro to relieve chest discomfort. Upon arrival to the emergency department patient found in a fit with RVR patient initiated on Cardizem drip for rate control. Patient on anticoagulation therapy for valvular disorder. Reviewed diagnostics unremarkable at this time. Patient denies any complaints at this time. Cardiology consult for management of new onset atrial fibrillation with valvular disorder. Review of Systems Constitutional: Reports weakness Eyes: bilateral as per HPI Cardiovascular: Reports dyspnea on exertion, Reports palpitations Respiratory: Reports respiratory infections Gastrointestinal: Reports nausea Neurological: Reports vertigo, Reports weakness Endocrine: Reports fatigue, Reports palpitations Past Medical History Past Medical History: Chest Pain / Angina, Diabetes Mellitus, Hyperlipidemia, Liver Disease, Myocardial Infarction ([place]), Osteoarthritis (OA), Sleep Apnea/CPAP/BIPAP, Thyroid Disorder Additional Past Medical History / Comment(s): hx of BLOOD CLOT LT EYE, FATTY LIVER, " states he had a staphylococcal infection that ("lasted for several years") at the time of his cardiac valve surgery , rash on back, SEPSIS 2013, USES C PAP Last Myocardial Infarction Date:: unknown History of Any Multi-Drug Resistant Organisms: None Reported MDRO Source:: RIGHT ELBOW- STAPH INFECTION culture shows MSSA Past Surgical History: Adenoidectomy, Cardiac Valve Replacement, Cholecystectomy, Heart Catheterization, Heart Catheterization With Stent, Tonsillectomy Additional Past Surgical History / Comment(s): MECHANICAL AORTIC VALVE 1985 , left eye tear duct surgery, left cataract surgery , right arm with plate and screws, one cardiac stent Past Anesthesia/Blood Transfusion Reactions: Motion Sickness Additional Past Anesthesia/Blood Transfusion Reaction / Comment(s): severe pain for a couple months post op tear duct surgery Date of Last Stent Placement:: 11/23/19 Past Psychological History: No Psychological Hx Reported Smoking Status: Former smoker Past Alcohol Use History: Rare Past Drug Use History: None Reported - Past Family History Father Family Medical History: Cancer Additional Family Medical History / Comment(s): prostate Medications and Allergies Home Medications and Allergies Comment(s): Medications and allergies reviewed consult pharmacy to dose Coumadin Home Medications Medication Instructions Recorded Confirmed Type Warfarin Sodium 8 mg PO SA 12/29/13 06/22/20 History Levothyroxine Sodium [Synthroid] 75 mcg PO DAILY 07/22/16 06/22/20 History metFORMIN HCL [Glucophage] 500 mg PO BID 07/22/16 06/22/20 History Atorvastatin [Lipitor] 40 mg PO DAILY 11/18/19 06/22/20 History Isosorbide Mononitrate ER [Imdur] 30 mg PO DAILY 11/18/19 06/22/20 History Warfarin [Coumadin] 10 mg PO SUMOTUWETHFR 11/18/19 06/22/20 History sitaGLIPtin PHOSPHATE [Januvia] 100 mg PO DAILY 11/21/19 06/22/20 History Ezetimibe [Zetia] 10 mg PO DAILY 11/23/19 06/22/20 History Clopidogrel [Plavix] 75 mg PO DAILY #90 tab 11/24/19 06/22/20 Rx Amoxic-Pot Clav 875-125Mg 1 tab PO Q12HR 06/22/20 06/22/20 History [Augmentin 875-125] Ascorbic Acid [Vitamin C] 1,000 mg PO TID 06/22/20 06/22/20 History Cholecalciferol [Vitamin D3 (25 25 mcg PO DAILY 06/22/20 06/22/20 History Mcg = 1000 Iu)] Multivitamin/Iron/Folic Acid 1 tab PO DAILY 06/22/20 06/22/20 History [Centrum Adults Tablet] Zinc 200 mg PO DAILY 06/22/20 06/22/20 History atenoloL [Tenormin] 25 mg PO QAM 06/22/20 06/22/20 History Allergies Allergy/AdvReac Type Severity Reaction Status Date / Time Sulfa (Sulfonamide Allergy Rash/Hives,SOB, Verified 06/22/20 08:28 Antibiotics) rapid heartbeat Physical Exam Vitals: Vital Signs Temp Pulse Resp BP Pulse Ox 06/22/20 09:00 108 H 18 101/68 96 06/22/20 08:30 88 18 104/74 96 06/22/20 08:00 100 18 97/76 97 06/22/20 07:29 98.3 F 109 H 18 120/98 96 Intake and Output 06/21/20 06/22/20 06/22/20 22:59 06:59 14:59 Other: Weight 115.666 kg - Constitutional General appearance: cooperative - EENT Eyes: EOMI, PERRLA ENT: normal oropharynx Ears: bilateral: normal - Neck Carotids: bilateral: upstroke normal Thyroid: bilateral: normal size - Respiratory Respiratory: bilateral: CTA (Anterior and posterior lung martin) - Cardiovascular Atrial fibrillation controlled rate Heart rate: 98 Rhythm: irregularly irregular Abnormal Heart Sounds: systolic murmur dorsalis pedis Peripheral Pulses: bilateral: Normal radial pulse Peripheral Pulses: bilateral: Normal - Gastrointestinal General gastrointestinal: normal bowel sounds - Integumentary Integumentary: normal turgor - Neurologic Neurologic: CNII-XII intact - Musculoskeletal Musculoskeletal: generalized weakness - Psychiatric Psychiatric: A&O x's 3, appropriate affect, intact judgment & insight Results CBC & Chem 7: 06/22/20 07:56 06/22/20 07:56 Labs: Abnormal Lab Results - Last 24 Hours (Table) 06/22/20 06/22/20 06/22/20 Range/Units 07:56 07:56 07:56 WBC 13.1 H (3.8-10.6) k/uL Neutrophils # 9.9 H (1.3-7.7) k/uL PT 23.5 H (9.0-12.0) sec INR 2.4 H (<1.2) APTT 30.8 H (22.0-30.0) sec Sodium 134 L (137-145) mmol/L Glucose 295 H (74-99) mg/dL ALT 60 H (4-49) U/L Chest x-ray: report reviewed Thrombosis Risk Factor Assmnt - DVT/VTE Prophylaxis DVT/VTE Prophylaxis: Pharmacologic Prophylaxis ordered - Choose All That Apply Other Risk Factors: Yes Each Risk Factor Represents 2 Points: Age 61-74 years Thrombosis Risk Factor Assessment Total Risk Factor Score: 2 Thrombosis Risk Factor Assessment Level: Low Risk Assessment and Plan Assessment: Palpitations consultation with cardiology for recommendations and treatment plan atrial fibrillation with RVR controlled on Cardizem drip consultation with cardiology for recommendations and treatment plan valvular disorder continue warfarin therapy pharmacy dose diabetes mellitus type II [id number] insulin sliding scale hyperlipidemia history of myocardial infarction history of osteoarthritis sleep apnea CPAP/BiPAP continue home medications medical management full code guarded prognosis Time with Patient: Greater than 30
[2020-06-22 11:35] LABS: Glucose,Whole Blood 257 mg/dL (75-99)
--- NOTE | 2020-06-22 12:00 | ECHOF ---
Referral Reason:cp MEASUREMENTS -------- HEIGHT: 180.3 cm WEIGHT: 115.7 kg BP: 169/99 RVIDd: 3.1 cm (< 3.3) IVSd: 1.8 cm (0.6 - 1.1) LVIDd: 4.2 cm (3.9 - 5.3) LVPWd: 1.7 cm (0.6 - 1.1) IVSs: 2.3 cm LVIDs: 3.6 cm LVPWs: 2.0 cm LA Diam: 4.1 cm (2.7 - 3.8) Ao Diam: 3.8 cm (2.0 - 3.7) MV EXCURSION: 12.907 mm (> 18.000) MV EF SLOPE: 66 mm/s (70 - 150) EPSS: 1.0 cm AV maxP.72 mmHg AV maxP.72 mmHg AV meanP.75 mmHg RAP: 5.00 mmHg RVSP: 21.84 mmHg FINDINGS -------- Atrial fibrillation. This was a technically difficult study with suboptimal views. The left ventricular size is normal. There is severe concentric left ventricular hypertrophy. Ove rall left ventricular systolic function is mild-moderately impaired with, an EF between 40 - 45 %. The right ventricle is normal in size. The left atrium is mildly dilated. The right atrium was not well visualized. 3 ml of Lumason was utilized for enhancement of images. Interatrial and interventricular septum intact. Trace to mild aortic regurgitation. Peak/mean gradient across the Aortic Valve is 29.72mmHg / 13.75 mmHg. Normally functioning mechanical prosthetic valve. Mild mitral annular calcification present. Mild tricuspid regurgitation present. Right ventricular systolic pressure is normal at < 35 mmHg. The pulmonic valve was not well visualized. The aortic root is dilated measuring 3.8cm. IVC Not well visulized. There is no pericardial effusion. CONCLUSIONS -------- 1. This was a technically difficult study with suboptimal views. 2. There is severe concentric left ventricular hypertrophy. 3. Overall left ventricular systolic function is mild-moderately impaired with, an EF between 40 - 45 %. 4. The left atrium is mildly dilated. 5. 3 ml of Lumason was utilized for enhancement of images. 6. Trace to mild aortic regurgitation. 7. Peak/mean gradient across the Aortic Valve is 29.72mmHg / 13.75mmHg. 8. Normally functioning mechanical prosthetic valve. 9. Mild mitral annular calcification present. 10. Mild tricuspid regurgitation present. 11. The aortic root is dilated measuring 3.8cm. 12. There is no pericardial effusion. OIL RIG DRILLER: Nuha Puentes RDCS
[2020-06-22] MEDS: INSULIN ASPART (NovoLOG) 100 UNIT/ML VIAL SQ SCH ×3 (12:27→21:51)
[2020-06-22] MEDS ORDERED: INSULIN ASPART (NovoLOG) 100 UNIT/ML VIAL SQ SCH (12:30)
[2020-06-22] MEDS ORDERED: METOPROLOL TARTRATE 12.5 MG TAB PO SCH (15:21)
[2020-06-22 16:32] LABS: Glucose,Whole Blood 231 mg/dL (75-99)
[2020-06-22] MEDS: ASCORBIC ACID 500 MG TAB PO SCH ×2 (17:05→21:54)
[2020-06-22 20:17] LABS: Glucose,Whole Blood 251 mg/dL (75-99)
[2020-06-22] MEDS: metFORMIN 500 MG TAB PO SCH (21:51)
[2020-06-22] MEDS: AMOXIC-POT CLAV 875-125MG 1 EACH TAB PO SCH (21:51)
[2020-06-23 05:53] LABS: Basophils # (A) 0.1 k/uL (0-0.2); Basophils % (A) 1 %; Eosinophils # (A) 0.3 k/uL (0-0.7); Eosinophils % (A) 3 %; HCT 44.5 % (39.0-53.0); HGB 14.7 gm/dL (13.0-17.5); Lymphocytes # (A) 1.9 k/uL (1.0-4.8); Lymphocytes % (A) 20 %; MCH 30.4 pg (25.0-35.0); MCHC 33.1 g/dL (31.0-37.0); MCV 91.8 fL (80.0-100.0); Mean Platelet Volume 8.3; Monocytes # (A) 0.4 k/uL (0-1.0); Monocytes % (A) 4 %; Neutrophils # (A) 6.9 k/uL (1.3-7.7); Neutrophils % (A) 70 %; Platelet Count 138 k/uL (150-450); RBC 4.84 m/uL (4.30-5.90); RDW 13.5 % (11.5-15.5); WBC 9.8 k/uL (3.8-10.6)
[2020-06-23 06:00] LABS: INR 2.4 (<1.2); Prothrombin Time 23.1 sec (9.0-12.0)
[2020-06-23 06:25] LABS: Glucose,Whole Blood 204 mg/dL (75-99)
[2020-06-23] MEDS: INSULIN ASPART (NovoLOG) 100 UNIT/ML VIAL SQ SCH ×4 (06:32→21:03)
[2020-06-23] MEDS: LEVOTHYROXINE 75 MCG TAB PO SCH (06:33)
[2020-06-23 06:40] LABS: ALT 53 U/L (4-49); AST 58 U/L (17-59); African American GFR (CKD) >90 (>60 ml/min/1.73 sqM); Albumin 3.4 g/dL (3.5-5.0); Alkaline Phosphatase 72 U/L (38-126); Anion Gap 3 mmol/L; Blood Urea Nitrogen 14 mg/dL (9-20); Calcium 8.7 mg/dL (8.4-10.2); Carbon Dioxide 29 mmol/L (22-30); Chloride 104 mmol/L (98-107); Cholesterol 69 mg/dL (<200); Glucose 207 mg/dL (74-99); HDL Cholesterol 20 mg/dL (40-60); LDL Cholesterol,Calculated 21 mg/dL (0-99); Magnesium 1.9 mg/dL (1.6-2.3); Non-African American GFR(CKD) >90 (>60 ml/min/1.73 sqM); Potassium 3.9 mmol/L (3.5-5.1); Sodium 136 mmol/L (137-145); Total Bilirubin 1.2 mg/dL (0.2-1.3); Total Protein 5.9 g/dL (6.3-8.2); Triglycerides 142 mg/dL (<150)
--- NOTE | 2020-06-23 07:52 | XR ---
EXAMINATION TYPE: XR chest 2V DATE OF EXAM: 06/23/2020 COMPARISON: 06/22/2020 INDICATION: Short of breath TECHNIQUE: Frontal and lateral views of the chest are obtained. FINDINGS: The heart size is normal. The pulmonary vasculature is normal. The lungs are clear. IMPRESSION: 1. No acute pulmonary process.
[2020-06-23] MEDS ORDERED: ASPIRIN 325 MG TAB PO SCH (09:00)
[2020-06-23] MEDS: AMOXIC-POT CLAV 875-125MG 1 EACH TAB PO SCH ×2 (09:37→21:03)
[2020-06-23] MEDS: LINAGLIPTIN 5 MG TABLET PO SCH (09:37)
[2020-06-23] MEDS: ASPIRIN 81 MG PO SCH (09:37)
[2020-06-23] MEDS: metFORMIN 500 MG TAB PO SCH ×2 (09:38→21:03)
[2020-06-23] MEDS: MULTIVITAMINS, THERA 1 EACH TAB PO SCH (09:38)
[2020-06-23] MEDS: CLOPIDOGREL 75 MG TAB PO SCH (09:38)
[2020-06-23] MEDS: ATORVASTATIN 40 MG TAB PO SCH (09:38)
[2020-06-23] MEDS: ISOSORBIDE MONONITRATE ER 30 MG TAB.ER.24H PO SCH (09:38)
[2020-06-23] MEDS: ASCORBIC ACID 500 MG TAB PO SCH ×3 (09:38→21:03)
[2020-06-23] MEDS: ZINC SULFATE 220 MG CAP PO SCH (09:38)
[2020-06-23] MEDS: CHOLECALCIFEROL 25 MCG (1000 IU) TABLET PO SCH (09:38)
[2020-06-23] MEDS: atenoloL 25 MG TAB PO SCH (09:38)
[2020-06-23] MEDS: EZETIMIBE 10 MG TAB PO SCH (09:38)
[2020-06-23 11:51] LABS: Glucose,Whole Blood 234 mg/dL (75-99)
--- NOTE | 2020-06-23 13:42 | P.CRDCN ---
History of Present Illness Consult date: 06/23/20 Consult reason: atrial fibrillation (A. fib with RVR, chest pain) History of present illness: HISTORY OF PRESENT ILLNESS This is a 64-year-old male patient of Dr. Norman with past medical history of aortic valve replacement, hypertension, hyperlipidemia, diabetes mellitus type 2, chronic tobacco use, history of coronary artery disease and presented last summer with complaints of chest discomfort and arm discomfort. Heart catheterization in November 2019 revealed critical stenosis involving the mid right coronary artery, totally occluded first and second obtuse marginal branch and diffuse intimal disease of the mid to moderate degree in the LAD. He then underwent successful stenting of the right coronary artery. In November 2019, he returned and underwent angioplasty and stenting of the totally occluded mid left circumflex. There was unsuccessful recannulization of the first obtuse marginal branch. Patient states that he was sitting in a chair and he knew he was not feeling right. He could feel his heart beating very fast in his chest. He states he has never had any episodes like this since 1979 as he thinks he may have had episodes of A. fib prior to his heart valve surgery but this is not confirmed. Chest x-ray shows no acute process. EKG was atrial fibrillation with RVR at a rate of 149. There were diffuse ST depression noted. In the emergency center, patient was started on Cardizem drip and bolus but these been discontinued by the time of evaluation. His INR was at 2.6. WBC 13.1, hemoglobin 16.4. He was afebrile, blood pressure 120/98, pulse ox 96% on room air. Troponin 0.030, 2.61, 5.19. Patient converted to sinus rhythm last evening. At the time of evaluation, patient is rather agitated and was talking about signing out AMA. He voices frustration regarding the bed and chair being uncomfortable and the fact that he has been nothing by mouth for extended period. REVIEW OF SYSTEMS At time of evaluation: Constitutional: No fever, no chills. No weakness, fatigue or lethargy. EENT: No headache. No dizziness. Lungs: No shortness of breath, cough, no sputum production. No wheezing. Cardiovascular: No chest pain, no lower extremity edema. No palpitations. No paroxysmal nocturnal dyspnea. No orthopnea. No lightheadedness or dizziness. No syncopal episodes. Abdominal: No abdominal pain. No nausea, vomiting. No diarrhea. No constipation. No bloody or tarry stools.. No loss of appetite. Genitourinary: No dysuria.. No urinary retention. Musculoskeletal: No myalgias. No muscle weakness, no gait dysfunction, no frequent falls. No back pain. No neck pain. Integumentary: No wounds, no lesions. No rash or pruritus. No unusual bruising. Neurologic: No aphasia. No facial droop. No change in mentation. No head injury. No headache. No paralysis. No paresthesia. PHYSICAL EXAMINATION Gen: This is a 65-year-old male. He is resting in chair and appears to be comfortable. VS: Afebrile, heart rate 59, blood pressure 103/70, pulse ox 97% on room air. HEENT: Head is atraumatic, normocephalic. Pupils equal, round. Sclerae is anicteric. NECK: Supple. No JVD. No lymphadenopathy. No thyromegaly. LUNGS: Clear to auscultation. No wheezes or rhonchi. No intercostal retractions. HEART: Regular rate and rhythm. Prostatic valve click ABDOMEN: Soft. Bowel sounds are present. No masses. No tenderness. EXTREMITIES: No pedal edema. No calf tenderness. NEUROLOGICAL: Patient is awake, alert and oriented x3. Cranial nerves 2 through 12 are grossly intact. ASSESSMENT Suspected non-ST elevated myocardial infarction New onset of atrial fibrillation, paroxysmal atrial fibrillation History of coronary artery disease History of aortic valve replacement Hypertension Hyperlipidemia Diabetes mellitus type 2 PLAN Recommend proceeding with heart catheterization the patient is reluctant and wants to go home. Patient convinced to stay overnight and reevaluate tomorrow. Continue home medications including aspirin 81 mg, atenolol 25 mg daily, Lipitor, 40 mg daily, Plavix 75 mg daily Imdur 30 mg daily Continue Coumadin and monitoring INR daily Obtain 2-D echocardiogram and Doppler study to assess cardiac structure and function Further recommendations to follow based upon clinical course Thank you kindly for this consultation. Nurse practitioner note has been reviewed, I agree with documented findings and plan of care. Patient was seen and examined. Past Medical History Past Medical History: Coronary Artery Disease (CAD), Chest Pain / Angina, Diabetes Mellitus, Hyperlipidemia, Liver Disease, Myocardial Infarction (AL), Osteoarthritis (OA), Sleep Apnea/CPAP/BIPAP, Thyroid Disorder Additional Past Medical History / Comment(s): hx of BLOOD CLOT LT EYE, FATTY LIVER, " states he had a staphylococcal infection that ("lasted for several years") at the time of his cardiac valve surgery , rash on back, SEPSIS 2013, USES C PAP Last Myocardial Infarction Date:: unknown History of Any Multi-Drug Resistant Organisms: None Reported MDRO Source:: RIGHT ELBOW- STAPH INFECTION culture shows MSSA Past Surgical History: Adenoidectomy, Cardiac Valve Replacement, Cholecystectomy, Heart Catheterization, Heart Catheterization With Stent, Tonsillectomy Additional Past Surgical History / Comment(s): MECHANICAL AORTIC VALVE 1985 , left eye tear duct surgery, left cataract surgery , right arm with plate and screws, one cardiac stent Past Anesthesia/Blood Transfusion Reactions: Motion Sickness Additional Past Anesthesia/Blood Transfusion Reaction / Comment(s): severe pain for a couple months post op tear duct surgery Date of Last Stent Placement:: 11/23/19 Past Psychological History: No Psychological Hx Reported Additional Psychological History / Comment(s): . Smoking Status: Current some day smoker Past Alcohol Use History: Rare Additional Past Alcohol Use History / Comment(s): started smoking at age 31 smokes 2-4 cig a day Past Drug Use History: None Reported - Past Family History Father Family Medical History: Cancer, Diabetes Mellitus Additional Family Medical History / Comment(s): prostate Medications and Allergies Home Medications Medication Instructions Recorded Confirmed Type Warfarin Sodium 8 mg PO SA 12/29/13 06/22/20 History Levothyroxine Sodium [Synthroid] 75 mcg PO DAILY 07/22/16 06/22/20 History metFORMIN HCL [Glucophage] 500 mg PO BID 07/22/16 06/22/20 History Atorvastatin [Lipitor] 40 mg PO DAILY 11/18/19 06/22/20 History Isosorbide Mononitrate ER [Imdur] 30 mg PO DAILY 11/18/19 06/22/20 History Warfarin [Coumadin] 10 mg PO SUMOTUWETHFR 11/18/19 06/22/20 History sitaGLIPtin PHOSPHATE [Januvia] 100 mg PO DAILY 11/21/19 06/22/20 History Ezetimibe [Zetia] 10 mg PO DAILY 11/23/19 06/22/20 History Clopidogrel [Plavix] 75 mg PO DAILY #90 tab 11/24/19 06/22/20 Rx Amoxic-Pot Clav 875-125Mg 1 tab PO Q12HR 06/22/20 06/22/20 History [Augmentin 875-125] Ascorbic Acid [Vitamin C] 1,000 mg PO TID 06/22/20 06/22/20 History Cholecalciferol [Vitamin D3 (25 25 mcg PO DAILY 06/22/20 06/22/20 History Mcg = 1000 Iu)] Multivitamin/Iron/Folic Acid 1 tab PO DAILY 06/22/20 06/22/20 History [Centrum Adults Tablet] Zinc 200 mg PO DAILY 06/22/20 06/22/20 History atenoloL [Tenormin] 25 mg PO QAM 06/22/20 06/22/20 History Allergies Allergy/AdvReac Type Severity Reaction Status Date / Time Sulfa (Sulfonamide Allergy Rash/Hives,SOB, Verified 06/22/20 08:28 Antibiotics) rapid heartbeat Physical Exam Vitals: Vital Signs Temp Pulse Resp BP Pulse Ox 06/23/20 09:35 98.2 F 57 L 16 110/64 97 06/23/20 04:00 64 16 108/68 94 L 06/23/20 02:00 69 17 06/23/20 00:00 97.8 F 69 17 107/66 96 06/22/20 20:00 98.2 F 67 18 139/79 96 06/22/20 17:51 59 L 06/22/20 16:05 84 17 06/22/20 16:00 98.1 F 81 17 117/75 96 06/22/20 11:30 81 17 06/22/20 11:00 98.4 F 84 18 113/73 97 Intake and Output 06/22/20 06/23/20 06/23/20 22:59 06:59 14:59 Intake Total 0 Balance 0 Intake: Oral 0 Other: Voiding Method Toilet Toilet # Voids 1 2 Weight 116.5 kg Results 06/23/20 05:38 06/23/20 05:38 Cardiac Enzymes 06/22/20 06/22/20 06/23/20 Range/Units 11:13 14:32 05:38 AST 58 (17-59) U/L Troponin I 2.610 H* 5.190 H* (0.000-0.034) ng/mL Coagulation 06/23/20 Range/Units 05:38 PT 23.1 H (9.0-12.0) sec Lipids 06/23/20 Range/Units 05:38 Triglycerides 142 (<150) mg/dL Cholesterol 69 (<200) mg/dL HDL Cholesterol 20 L (40-60) mg/dL CBC 06/23/20 Range/Units 05:38 WBC 9.8 (3.8-10.6) k/uL RBC 4.84 (4.30-5.90) m/uL Hgb 14.7 (13.0-17.5) gm/dL Hct 44.5 (39.0-53.0) % Plt Count 138 L (150-450) k/uL Comprehensive Metabolic Panel 06/23/20 Range/Units 05:38 Sodium 136 L (137-145) mmol/L Potassium 3.9 (3.5-5.1) mmol/L Chloride 104 (98-107) mmol/L Carbon Dioxide 29 (22-30) mmol/L BUN 14 (9-20) mg/dL Creatinine 0.87 (0.66-1.25) mg/dL Glucose 207 H (74-99) mg/dL Calcium 8.7 (8.4-10.2) mg/dL AST 58 (17-59) U/L ALT 53 H (4-49) U/L Alkaline Phosphatase 72 (38-126) U/L Total Protein 5.9 L (6.3-8.2) g/dL Albumin 3.4 L (3.5-5.0) g/dL Current Medications Generic Name Dose Route Start Last Admin Trade Name Freq PRN Reason Stop Dose Admin Amoxicillin/Clavulanate Potassium 1 each 06/22/20 21:00 06/23/20 09:37 Amoxic-Pot Clav 875-125mg 1 Each Tab PO 1 each Q12HR ZAKI Administration Ascorbic Acid 1,000 mg 06/22/20 16:00 06/23/20 09:38 Ascorbic Acid 500 Mg Tab PO 1,000 mg TID ZAKI Administration Aspirin 81 mg 06/23/20 09:00 06/23/20 09:37 Aspirin 81 Mg PO 81 mg DAILY ZAKI Administration Atenolol 25 mg 06/23/20 09:00 06/23/20 09:38 Atenolol 25 Mg Tab PO 25 mg QAM ZAKI Administration Atorvastatin Calcium 40 mg 06/23/20 09:00 06/23/20 09:38 Atorvastatin 40 Mg Tab PO 40 mg DAILY ZAKI Administration Cholecalciferol 25 mcg 06/23/20 09:00 06/23/20 09:38 Cholecalciferol 25 Mcg (1000 Iu) Tablet PO 25 mcg DAILY ZAKI Administration Clopidogrel Bisulfate 75 mg 06/23/20 09:00 06/23/20 09:38 Clopidogrel 75 Mg Tab PO 75 mg DAILY ZAKI Administration Ezetimibe 10 mg 06/23/20 09:00 06/23/20 09:38 Ezetimibe 10 Mg Tab PO 10 mg DAILY ZAKI Administration Insulin Aspart 0 unit 06/22/20 12:30 06/23/20 06:32 Insulin Aspart (Novolog) 100 Unit/Ml Vial SQ 4 unit ACHS [facility] Administration Protocol Isosorbide Mononitrate 30 mg 06/23/20 09:00 06/23/20 09:38 Isosorbide Mononitrate Er 30 Mg Tab.Er.24h PO 30 mg DAILY ZAKI Administration Levothyroxine Sodium 75 mcg 06/23/20 06:30 06/23/20 06:33 Levothyroxine 75 Mcg Tab PO 75 mcg DAILY@0630 ZAKI Administration Linagliptin 5 mg 06/23/20 09:00 06/23/20 09:37 Linagliptin 5 Mg Tablet PO 5 mg DAILY ZKAI Administration Metformin HCl 500 mg 06/22/20 21:00 06/23/20 09:38 Metformin 500 Mg Tab PO 500 mg BID ZAKI Administration Miscellaneous Information 0 each 06/22/20 09:35 Warfarin Per Pharmacy MISCELLANE DIRECTED PRN Per Protocol Multivitamins 1 each 06/23/20 09:00 06/23/20 09:38 Multivitamins, Thera 1 Each Tab PO 1 each DAILY [facility] Administration Nitroglycerin 0.4 mg 06/22/20 09:10 Nitroglycerin Sl Tabs 0.4 Mg Tab SUBLINGUAL Q5M PRN Chest Pain Warfarin Sodium 10 mg 06/24/20 18:00 Warfarin 10 Mg Tab PO [id number] [facility] Protocol Warfarin Sodium 8 mg 06/23/20 18:00 Warfarin 2 Mg Tab PO Sa@1800 [facility] Zinc Sulfate 220 mg 06/23/20 09:00 06/23/20 09:38 Zinc Sulfate 220 Mg Cap PO 220 mg DAILY ZAKI Administration Intake and Output 01/06/23/20 06/23/20 22:59 06:59 14:59 Intake Total 0 Balance 0 Intake: Oral 0 Other: Voiding Method Toilet Toilet # Voids 1 2 Weight 116.5 kg 06/23/20 05:38 06/23/20 05:38
--- NOTE | 2020-06-23 16:26 | P.PN ---
Subjective 64-year-old male patient of Dr. Norman with past medical history of aortic valve replacement, hypertension, hyperlipidemia, diabetes mellitus type 2, chronic tobacco use, history of coronary artery disease and presented last summer with complaints of chest discomfort and arm discomfort. Heart catheterization in November 2019 revealed critical stenosis involving the mid right coronary artery, totally occluded first and second obtuse marginal branch and diffuse intimal disease of the mid to moderate degree in the LAD. He then underwent successful stenting of the right coronary artery. In November 2019, he returned and underwent angioplasty and stenting of the totally occluded mid left circumflex. There was unsuccessful recannulization of the first obtuse marginal branch. Patient states that he was sitting in a chair and he knew he was not feeling right. He could feel his heart beating very fast in his chest. He states he has never had any episodes like this since 1979 as he thinks he may have had episodes of A. fib prior to his heart valve surgery but this is not confirmed. Chest x-ray shows no acute process. EKG was atrial fibrillation with RVR at a rate of 149. There were diffuse ST depression noted. In the emergency center, patient was started on Cardizem drip and bolus but these been discontinued by the time of evaluation. His INR was at 2.6. WBC 13.1, hemoglobin 16.4. He was afebrile, blood pressure 120/98, pulse ox 96% on room air. Troponin 0.030, 2.61, 5.19. Patient converted to sinus rhythm last sondra jaime. Objective - Vital Signs Vital signs: Vital Signs Temp 97.9 F 06/23/20 12:00 Pulse 59 L 06/23/20 12:00 Resp 16 06/23/20 12:00 BP 103/70 06/23/20 12:00 Pulse Ox 97 06/23/20 12:00 Intake & Output 06/22/20 06/23/20 06/23/20 18:59 06:59 18:59 Intake Total 215 0 Balance 215 0 Weight 115.666 kg 116.5 kg Intake: Oral 215 0 Other: Voiding Method Toilet Toilet Toilet # Voids 1 2 - Exam Gen: This is a 65-year-old male. He is resting in chair and appears to be comfortable. VS: Afebrile, heart rate 59, blood pressure 103/70, pulse ox 97% on room air. HEENT: Head is atraumatic, normocephalic. Pupils equal, round. Sclerae is anicteric. NECK: Supple. No JVD. No lymphadenopathy. No thyromegaly. LUNGS: Clear to auscultation. No wheezes or rhonchi. No intercostal retractions. HEART: Regular rate and rhythm. Prostatic valve click ABDOMEN: Soft. Bowel sounds are present. No masses. No tenderness. EXTREMITIES: No pedal edema. No calf tenderness. NEUROLOGICAL: Patient is awake, alert and oriented x3. Cranial nerves 2 through 12 are grossly intact. - Labs CBC & Chem 7: 06/23/20 05:38 06/23/20 05:38 Labs: Abnormal Lab Results - Last 24 Hours (Table) 06/22/20 06/22/20 06/22/20 Range/Units 11:13 14:32 16:27 Plt Count (150-450) k/uL PT (9.0-12.0) sec INR (<1.2) Sodium (137-145) mmol/L Glucose (74-99) mg/dL POC Glucose (mg/dL) 231 H (75-99) mg/dL ALT (4-49) U/L Troponin I 2.610 H* 5.190 H* (0.000-0.034) ng/mL Total Protein (6.3-8.2) g/dL Albumin (3.5-5.0) g/dL HDL Cholesterol (40-60) mg/dL 06/22/20 06/23/20 06/23/20 Range/Units 20:15 05:38 05:38 Plt Count 138 L (150-450) k/uL PT (9.0-12.0) sec INR (<1.2) Sodium 136 L (137-145) mmol/L Glucose 207 H (74-99) mg/dL POC Glucose (mg/dL) 251 H (75-99) mg/dL ALT 53 H (4-49) U/L Troponin I (0.000-0.034) ng/mL Total Protein 5.9 L (6.3-8.2) g/dL Albumin 3.4 L (3.5-5.0) g/dL HDL Cholesterol 20 L (40-60) mg/dL 06/23/20 06/23/2021 Range/Units 05:38 06:23 11:39 Plt Count (150-450) k/uL PT 23.1 H (9.0-12.0) sec INR 2.4 H (<1.2) Sodium (137-145) mmol/L Glucose (74-99) mg/dL POC Glucose (mg/dL) 204 H 234 H (75-99) mg/dL ALT (4-49) U/L Troponin I (0.000-0.034) ng/mL Total Protein (6.3-8.2) g/dL Albumin (3.5-5.0) g/dL HDL Cholesterol (40-60) mg/dL Assessment and Plan Assessment: 1. Suspected non-ST elevation LA - Patient has been evaluated by cardiology and is recommended to proceed with cardiac catheterization; patient is reluctant at this time and wants to be able to go home and follow-up with primary oil tester and proceed with cardiac catheterization if still recommended; patient remains on aspirin 81 mg daily, atenolol 25 mg daily, Lipitor 40 mg daily, Plavix 75 mg daily and Imdur 30 mg daily - 2-D echo is ordered and pending 2. New onset atrial fibrillation; normal sinus rhythm now - Patient remains on beta blockers for rate controlled in form of atenolol 25 mg daily and anticoagulation with Coumadin 3. Hypertension; atenolol 25 mg daily 4. Hyperlipidemia; Lipitor 40 mg by mouth daily at bedtime 5. Diabetes mellitus type 2; monitor Accu-Cheks before meals and at bedtime with insulin sliding scale DVT prophylaxis; SCDs/systemic anticoagulation CODE STATUS; full code
[2020-06-23 17:28] LABS: Glucose,Whole Blood 183 mg/dL (75-99)
[2020-06-23] MEDS ORDERED: WARFARIN 2 MG TAB PO SCH (18:00)
[2020-06-23 19:45] VITALS: RESP 16
[2020-06-23 20:15] LABS: Glucose,Whole Blood 231 mg/dL (75-99)
[2020-06-24 06:21] LABS: Glucose,Whole Blood 195 mg/dL (75-99)
[2020-06-24] MEDS: INSULIN ASPART (NovoLOG) 100 UNIT/ML VIAL SQ SCH ×2 (06:27→12:41)
[2020-06-24] MEDS: LEVOTHYROXINE 75 MCG TAB PO SCH (06:27)
[2020-06-24 07:00] LABS: INR 2.1 (<1.2); Prothrombin Time 20.3 sec (9.0-12.0)
[2020-06-24] MEDS: AMOXIC-POT CLAV 875-125MG 1 EACH TAB PO SCH (09:27)
[2020-06-24] MEDS: ATORVASTATIN 40 MG TAB PO SCH (09:27)
[2020-06-24] MEDS: atenoloL 25 MG TAB PO SCH (09:27)
[2020-06-24] MEDS: ASPIRIN 81 MG PO SCH (09:27)
[2020-06-24] MEDS: CHOLECALCIFEROL 25 MCG (1000 IU) TABLET PO SCH (09:27)
[2020-06-24] MEDS: ASCORBIC ACID 500 MG TAB PO SCH (09:27)
[2020-06-24] MEDS: CLOPIDOGREL 75 MG TAB PO SCH (09:27)
[2020-06-24] MEDS: ISOSORBIDE MONONITRATE ER 30 MG TAB.ER.24H PO SCH (09:28)
[2020-06-24] MEDS: metFORMIN 500 MG TAB PO SCH (09:28)
[2020-06-24] MEDS: LINAGLIPTIN 5 MG TABLET PO SCH (09:28)
[2020-06-24] MEDS: EZETIMIBE 10 MG TAB PO SCH (09:28)
[2020-06-24] MEDS: ZINC SULFATE 220 MG CAP PO SCH (09:28)
[2020-06-24] MEDS: MULTIVITAMINS, THERA 1 EACH TAB PO SCH (09:28)
--- NOTE | 2020-06-24 10:27 | P.PN ---
Subjective Progress Note Date: 06/24/20 HISTORY OF PRESENT ILLNESS This is a 64-year-old male patient of Dr. Norman with past medical hi story of aortic valve replacement, hypertension, hyperlipidemia, diabetes mellitus type 2, chronic tobacco use, history of coronary artery disease and presented last summer with complaints of chest discomfort and arm discomfort. Heart catheterization in November 2019 revealed critical stenosis involving the mid right coronary artery, totally occluded first and second obtuse marginal branch and diffuse intimal disease of the mid to moderate degree in the LAD. He then underwent successful stenting of the right coronary artery. In November 2019, he returned and underwent angioplasty and stenting of the totally occluded mid left circumflex. There was unsuccessful recannulization of the first obtuse marginal branch. Patient states that he was sitting in a chair and he knew he was not feeling right. He could feel his heart beating very fast in his chest. He states he has never had any episodes like this since 1979 as he thinks he may have had episodes of A. fib prior to his heart valve surgery but this is not confirmed. Chest x-ray shows no acute process. EKG was atrial fibrillation with RVR at a rate of 149. There were diffuse ST depression noted. In the emergency center, patient was started on Cardizem drip and bolus but these been discontinued by the time of evaluation. His INR was at 2.6. WBC 13.1, hemoglobin 16.4. He was afebrile, blood pressure 120/98, pulse ox 96% on room air. Troponin 0.030, 2.61, 5.19. Patient converted to sinus rhythm last evening. At the time of evaluation, patient is rather agitated and was talking about signing out AMA. He voices frustration regarding the bed and chair being uncomfortable and the fact that he has been nothing by mouth for extended period. 06/24: Patient denies having any abdominal pain, no palpitations or fluttering feeling in his chest. 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 Echocardiogram reveals EF of 40-45% with severe concentric left ventricular hypertrophy, trace to mild aortic regurgitation, mild tricuspid regurgitation, aortic root dilated at 3.8 cm. INR is 2.1. Patient has been afebrile, heart rate running in the 60s. Blood pressure 107/70, pulse ox 96% on room air. PHYSICAL EXAMINATION Gen: This is a 65-year-old male. He is resting in chair and appears to be comfortable. Patient is fully dressed anticipating discharge. HEENT: Head is atraumatic, normocephalic. Pupils equal, round. Sclerae is anicteric. NECK: Supple. No JVD. No lymphadenopathy. No thyromegaly. LUNGS: Clear to auscultation. No wheezes or rhonchi. No intercostal retractions. HEART: Regular rate and rhythm. Prostatic valve click ABDOMEN: Soft. Bowel sounds are present. No masses. No tenderness. EXTREMITIES: No pedal edema. No calf tenderness. NEUROLOGICAL: Patient is awake, alert and oriented x3. Cranial nerves 2 through 12 are grossly intact. ASSESSMENT Suspected non-ST elevated myocardial infarction New onset of atrial fibrillation, paroxysmal atrial fibrillation History of coronary artery disease History of aortic valve replacement Hypertension Hyperlipidemia Diabetes mellitus type 2 PLAN Continue home medications including aspirin 81 mg, atenolol 25 mg daily, Lipitor, 40 mg daily, Plavix 75 mg daily, Imdur 30 mg daily Continue Coumadin and monitoring INR daily Patient is cleared for discharge home by cardiology with plan for follow-up in the office with Dr. Norman. Nurse practitioner note has been reviewed, I agree with documented fin in the office with Dr. Walsh and plan of care. Patient was seen and examined. Objective - Vital Signs Vital signs: Vital Signs Temp 98.1 F 06/24/20 04:00 Pulse 60 06/24/20 04:00 Resp 16 06/24/20 04:00 BP 107/70 06/24/20 04:00 Pulse Ox 96 06/24/20 04:00 Intake & Output 06/23/20 06/24/20 06/24/20 18:59 06:59 18:59 Intake Total 960 40 Balance 960 40 Weight 115.8 kg Intake: IV 40 .9 40 Oral 960 Other: Voiding Method Toilet Toilet # Voids 4 2 - Labs CBC & Chem 7: 06/23/20 05:38 06/23/20 05:38 Labs: Abnormal Lab Results - Last 24 Hours (Table) 06/23/20 06/23/20 06/23/20 Range/Units 05:38 11:39 17:09 PT (9.0-12.0) sec INR (<1.2) POC Glucose (mg/dL) 234 H 183 H (75-99) mg/dL Hemoglobin A1c 10.0 H (4.0-6.0) % 06/23/20 06/24/20 06/24/20 Range/Units 20:13 05:56 06:14 PT 20.3 H (9.0-12.0) sec INR 2.1 H (<1.2) POC Glucose (mg/dL) 231 H 195 H (75-99) mg/dL Hemoglobin A1c (4.0-6.0) %
[2020-06-24 11:15] VITALS: TEMP 97.3
[2020-06-24 12:02] VITALS: BP 110/65; PULSE 68
[2020-06-24 12:22] LABS: Glucose,Whole Blood 210 mg/dL (75-99)
[2020-06-24 14:33] VITALS: BMI 35.6
--- NOTE | 2020-06-24 16:43 | P.DS ---
Providers Date of admission: 06/22/20 09:10 Expected date of discharge: 06/24/20 Attending physician: Agapito Russell Consults: 06/22/20 09:10 Consult Physician Urgent Consulting Provider: Mariza Norman Consult Reason/Comments: A-fib with RVR, cp Do you want consulting provider notified?: Yes Primary care physician: Agapito Russell Hospital Course: 64-year-old male patient of Dr. Norman with past medical history of aortic valve replacement, hypertension, hyperlipidemia, diabetes mellitus type 2, chronic tobacco use, history of coronary artery disease and presented last summer with complaints of chest discomfort and arm discomfort. Heart catheterization in November 2019 revealed critical stenosis involving the mid right coronary artery, totally occluded first and second obtuse marginal branch and diffuse intimal disease of the mid to moderate degree in the LAD. He then underwent successful stenting of the right coronary artery. In November 2019, he returned and underwent angioplasty and stenting of the totally occluded mid left circumflex. There was unsuccessful recannulization of the first obtuse marginal branch. Patient states that he was sitting in a chair and he knew he was not feeling right. He could feel his heart beating very fast in his chest. He states he has never had any episodes like this since 1979 as he thinks he may have had episodes of A. fib prior to his heart valve surgery but this is not confirmed. Chest x-ray shows no acute process. EKG was atrial fibrillation with RVR at a rate of 149. There were diffuse ST depression noted. In the emergency center, patient was started on Cardizem drip and bolus but these been discontinued by the time of evaluation. His INR was at 2.6. WBC 13.1, hemoglobin 16.4. He was afebrile, blood pressure 120/98, pulse ox 96% on room air. Troponin 0.030, 2.61, 5.19. Patient converted to sinus rhythm last evening. At the time of evaluation, patient is rather agitated and was talking about signing out AMA. He voices frustration regarding the bed and chair being uncomfortable and the fact that he has been nothing by mouth for extended period. 06/24: Patient denies having any abdominal pain, no palpitations or fluttering feeling in his chest. desk monitor has been in sinus bradycardia. Echocardiogram reveals EF of 40-45% with severe concentric left ventricular hypertrophy, trace to mild aortic regurgitation, mild tricuspid regurgitation, aortic root dilated at 3.8 cm. INR is 2.1. Patient has been afebrile, heart rate running in the 60s. Blood pressure 107/70, pulse ox 96% on room air. Patient was seen by cardiology for suspected non-ST elevation IA; patient was recommended cardiac catheterization which he declined while inpatient and wanted to follow up with primary project management manager and follow the recommendation; patient was recommended to continue with aspirin 81 mg daily, atenolol 25 mg daily, Lipitor 40 mg daily, Plavix 75 mg daily and Imdur 30 mg daily current dose of Coumadin; recommended to follow-up with primary project management manager for further recommendations Patient Condition at Discharge: Fair Plan - Discharge Summary Discharge Rx Participant: No New Discharge Prescriptions: New Aspirin 81 mg PO DAILY chew Continue Warfarin Sodium 8 mg PO SA metFORMIN HCL [Glucophage] 500 mg PO BID Levothyroxine Sodium [Synthroid] 75 mcg PO DAILY Isosorbide Mononitrate ER [Imdur] 30 mg PO DAILY Atorvastatin [Lipitor] 40 mg PO DAILY Warfarin [Coumadin] 10 mg PO SUMOTUWETHFR sitaGLIPtin PHOSPHATE [Januvia] 100 mg PO DAILY Ezetimibe [Zetia] 10 mg PO DAILY Clopidogrel [Plavix] 75 mg PO DAILY #90 tab Cholecalciferol [Vitamin D3 (25 Mcg = 1000 Iu)] 25 mcg PO DAILY Ascorbic Acid [Vitamin C] 1,000 mg PO TID Multivitamin/Iron/Folic Acid [Centrum Adults Tablet] 1 tab PO DAILY Amoxic-Pot Clav 875-125Mg [Augmentin 875-125] 1 tab PO Q12HR atenoloL [Tenormin] 25 mg PO QAM Zinc 200 mg PO DAILY Discharge Medication List Warfarin Sodium 8 mg PO SA 12/29/13 [History] Levothyroxine Sodium [Synthroid] 75 mcg PO DAILY 07/22/16 [History] metFORMIN HCL [Glucophage] 500 mg PO BID 07/22/16 [History] Atorvastatin [Lipitor] 40 mg PO DAILY 11/18/19 [History] Isosorbide Mononitrate ER [Imdur] 30 mg PO DAILY 11/18/19 [History] Warfarin [Coumadin] 10 mg PO SUMOTUWETHFR 11/18/19 [History] sitaGLIPtin PHOSPHATE [Januvia] 100 mg PO DAILY 11/21/19 [History] Ezetimibe [Zetia] 10 mg PO DAILY 11/23/19 [History] Clopidogrel [Plavix] 75 mg PO DAILY #90 tab 11/24/19 [Rx] Amoxic-Pot Clav 875-125Mg [Augmentin 875-125] 1 tab PO Q12HR 06/22/20 [History] Ascorbic Acid [Vitamin C] 1,000 mg PO TID 06/22/20 [History] Cholecalciferol [Vitamin D3 (25 Mcg = 1000 Iu)] 25 mcg PO DAILY 06/22/20 [History] Multivitamin/Iron/Folic Acid [Centrum Adults Tablet] 1 tab PO DAILY 06/22/20 [History] Zinc 200 mg PO DAILY 06/22/20 [History] atenoloL [Tenormin] 25 mg PO QAM 06/22/20 [History] Aspirin 81 mg PO DAILY chew 06/24/20 [Rx] Follow up Appointment(s)/Referral(s): Agapito Russell MD [Primary Care Provider] - 1-2 days (PLEASE CALL THE OFFICE DURING BUSINESS HOURS TO SCHEDULE FOLLOW UP. ) Mariza Norman MD [STAFF PHYSICIAN] - 1 Week (PLEASE CALL THE OFFICE DURING BUSINESS HOURS TO SCHEDULE FOLLOW UP. ) Patient Instructions/Handouts: A-fib (Atrial Fibrillation) (DC), Acute Coronary Syndrome (DC) Discharge Disposition: HOME SELF-CARE
[2020-06-24] MEDS ORDERED: WARFARIN 2 MG TAB PO ONE (18:00)
[2020-06-24] MEDS ORDERED: WARFARIN 10 MG TAB PO SCH (18:00)
--- NOTE | 2020-06-27 13:16 | CDI ---
Documentation Clarification Form Date: 06/27/2020 12:58:00 PM From: Ramila Garcia Phone: If you have a question about this query, please contact Simran Santana, Apron Cleaner at [phone] between 8am and 5pm. Admit Date: 06/22/2020 09:10:00 AM Patient Name: Shukri Swartz Visit Number: [id number] Discharge Date: 06/24/2020 04:31:00 PM ATTENTION: The Clinical Documentation Specialists (CDI) and [facility] Coding Staff appreciate your assistance in clarifying documentation. Please respond to the clarification below the line at the bottom and electronically sign. The CDI & [facility] Coding staff will review the response and follow-up if needed. Please note: Queries are made part of the Legal Health Record. If you have any questions, please contact the author of this message via ITS. Dr. Madalyn Jacobsen Per cardiology and your last PN, NSTEMI is suspected. This diagnosis is not carried to [facility]. Please clarify if patient had a suspected NSTEMI, in your opinion. Patient History/Risk Factors: CAD, PTCA, atrial fib, history of [place] Clinical Indicators: Troponin: 0.030, 2.610, 5.190 EKG Results: ST wave abnormality, sinus bradycardia, prolonged QT Treatment: recommended cardiac cath, remain on Plavix, aspirin, Lipitor Consult: cardiology suspects NSTEMI In order to capture the severity of condition and necessary documentation specificity, please clarify if patient had a suspected NSTEMI in your opinion. Type of Infarction: STEMI NSTEMI NSTEMI ruled out Unable to determine Other Condition, please specify NSTEMI MTDD
== END 2020-06-24 16:31 | disposition home or self-care (01) | DRG 282 ==
LOC: EC 07:27 → 3SCARD 09:10
PROVIDERS: ADMIT Family Medicine; ATTEND Family Medicine
DX: I21.4 Non-ST elevation (NSTEMI) myocardial infarction (principal); D72.829 Elevated white blood cell count, unspecified; E11.65 Type 2 diabetes mellitus with hyperglycemia; E78.5 Hyperlipidemia, unspecified; F17.210 Nicotine dependence, cigarettes, uncomplicated; G47.30 Sleep apnea, unspecified; Z99.89 Dependence on other enabling machines and devices; I11.9 Hypertensive heart disease without heart failure; I25.10 Atherosclerotic heart disease of native coronary artery without angina pectoris; I25.2 Old myocardial infarction; I48.0 Paroxysmal atrial fibrillation; K76.0 Fatty (change of) liver, not elsewhere classified; Z79.01 Long term (current) use of anticoagulants; Z79.02 Long term (current) use of antithrombotics/antiplatelets; Z79.82 Long term (current) use of aspirin; Z79.84 Long term (current) use of oral hypoglycemic drugs; Z79.890 Hormone replacement therapy; Z79.899 Other long term (current) drug therapy; Z83.3 Family history of diabetes mellitus; Z95.2 Presence of prosthetic heart valve; Z95.5 Presence of coronary angioplasty implant and graft; Z98.42 Cataract extraction status, left eye; Z80.42 Family history of malignant neoplasm of prostate; I08.0 Rheumatic disorders of both mitral and aortic valves; Z88.2 Allergy status to sulfonamides; M19.90 Unspecified osteoarthritis, unspecified site; Z90.89 Acquired absence of other organs; Z90.49 Acquired absence of other specified parts of digestive tract; E07.9 Disorder of thyroid, unspecified
CPT/HCPCS: 36415; 71046; 80053; 80061; 83036; 83735; 84484; 85025; 85610; 85730; 87040; 93005; 93306; 96365; 96366; 96376; 99291

== ENCOUNTER 2020-07-26 07:51 | Day surgery (SDC) | payer OTHER ==
[2020-07-20 14:33] VITALS: BMI 35.5
[~2020-07-26 07:51] MED LIST changes: +HEPARIN SODIUM,PORCINE 10,000 UNIT in SODIUM CHLORIDE 0.9% 1,000 ML IRRIGATION PRN; +HEPARIN SODIUM,PORCINE 2,500 UNIT in SODIUM CHLORIDE 0.9% 250 ML IRRIGATION PRN
[2020-07-26] MEDS ORDERED: ASPIRIN 81 MG ONE (08:00)
[2020-07-26] MEDS ORDERED: INSULIN ASPART (NovoLOG) 100 UNIT/ML VIAL SQ ONE (08:18)
[2020-07-26 08:26] VITALS: RESP 16; TEMP 98.3
[2020-07-26 08:26] LABS: Glucose,Whole Blood 360 mg/dL (75-99)
[2020-07-26 08:27] LABS: Basophils # (A) 0.1 k/uL (0-0.2); Basophils % (A) 1 %; Eosinophils # (A) 0.3 k/uL (0-0.7); Eosinophils % (A) 4 %; HCT 42.5 % (39.0-53.0); HGB 14.7 gm/dL (13.0-17.5); Lymphocytes # (A) 1.5 k/uL (1.0-4.8); Lymphocytes % (A) 20 %; MCH 31.3 pg (25.0-35.0); MCHC 34.6 g/dL (31.0-37.0); MCV 90.4 fL (80.0-100.0); Mean Platelet Volume 8.8; Monocytes # (A) 0.6 k/uL (0-1.0); Monocytes % (A) 7 %; Neutrophils # (A) 5.1 k/uL (1.3-7.7); Neutrophils % (A) 67 %; Platelet Count 112 k/uL (150-450); RDW 13.1 % (11.5-15.5); WBC 7.7 k/uL (3.8-10.6)
[2020-07-26 08:43] LABS: African American GFR (CKD) >90 (>60 ml/min/1.73 sqM); Anion Gap 10 mmol/L; Blood Urea Nitrogen 22 mg/dL (9-20); Calcium 9.2 mg/dL (8.4-10.2); Carbon Dioxide 25 mmol/L (22-30); Chloride 101 mmol/L (98-107); Glucose 353 mg/dL (74-99); Non-African American GFR(CKD) >90 (>60 ml/min/1.73 sqM); Potassium 4.3 mmol/L (3.5-5.1); Sodium 136 mmol/L (137-145)
[2020-07-26 08:50] LABS: INR 1.1 (<1.2); Prothrombin Time 11.6 sec (9.0-12.0)
[2020-07-26] MEDS ORDERED: LIDOCAINE 1% INJ 10MG/ML (20 ML MDV) ONE (09:04)
[2020-07-26] MEDS ORDERED: VERAPAMIL 2.5 MG/ML 2 ML AMP ONE (09:04)
[2020-07-26] MEDS ORDERED: fentaNYL (PF) 50 MCG/ML 2 ML AMP ONE (09:19)
[2020-07-26] MEDS ORDERED: fentaNYL (PF) 50 MCG/ML 2 ML AMP IV ONE (09:36)
[2020-07-26] MEDS ORDERED: LIDOCAINE 1% INJ 10MG/ML (20 ML MDV) SQ ONE (09:40)
[2020-07-26] MEDS ORDERED: VERAPAMIL SYRINGE (5 MG/10 ML) INTRAARTER ONE (09:42)
[2020-07-26] MEDS ORDERED: HEPARIN SODIUM 1,000 UN/ML (10ML VL) ONE (09:42)
[2020-07-26] MEDS ORDERED: IOPAMIDOL-370 125ML BTL INJ ONE (10:02)
[2020-07-26] MEDS ORDERED: RX INFO: IV CONTRAST WAS GIVEN 1 EACH MISC MISCELLANE PRN (10:22)
[2020-07-26] MEDS ORDERED: SODIUM CHLORIDE 0.9% 1,000 ML IV SCH (10:30)
[2020-07-26 12:19] LABS: Glucose,Whole Blood 255 mg/dL (75-99)
[2020-07-26 12:29] VITALS: BP 96/57; PULSE 60
[2020-07-26] MEDS ORDERED: LINAGLIPTIN 5 MG TABLET PO SCH (12:30)
--- NOTE | 2020-07-26 14:33 | CC ---
CARDIAC CATHETERIZATION REPORT Mr. Swartz is a 65-year-old male with known history of aortic valve replacement, history of coronary artery disease who recently was admitted to the hospital and he had evidence of non STEMI. Subsequently underwent a myocardial perfusion imaging revealed evidence of inducible ischemia. In view of that, recommendation made regarding cardiac catheterization. The procedure, risks and the complications were discussed with the patient who is in full understanding and agreement. PROCEDURE: Patient was brought to the label pinker in the fasting semi-sedated state after receiving fentanyl and Benadryl and achieving moderate conscious sedated state. Using Xylocaine anesthesia and Seldinger technique, a 6-Cymro sheath was introduced in the right radial artery. Selective right and left coronary angiography performed using 5-Cymro 3.5 bend right Shreya and initially 3.5 bend left Shreya that was subsequently changed to 4 bend left Shreya. Multiple views of the coronary artery including hemiaxial views were obtained. Following that, catheter and sheath were removed. Hemostasis was obtained and deployment of a TR band. There was no immediate complication. The patient is returned to his room in stable condition. Of note, the patient received 5000 units of intravenous heparin as well as intra-arterial verapamil. FLUOROSCOPY: Fluoroscopy revealed a dual disc aortic valve prosthetic with normal function. LEFT MAIN: This is a large-sized vessel, bifurcating into left circumflex, left anterior descending artery. Left main coronary artery has no evidence of high-grade stenosis. LEFT ANTERIOR DESCENDING ARTERY: This is a large-sized vessel reaching toward the apex with a wraparound apex segment. The proximal LAD has mild disease of 20% to 30%. The mid and distal segment have diffuse intimal disease up to 50% with no focal lesion. It gives rise to 2 small diagonal branches that have diffuse intimal disease. LEFT CIRCUMFLEX: This is a nondominant vessel giving rise to a very proximal obtuse marginal branch that is totally occluded with no significant antegrade flow. The stented segment in the mid circumflex is patent, but the distal flow into circumflex is totally occluded. RIGHT CORONARY ARTERY: This is a dominant vessel large in caliber bifurcating into PDA and posterolateral segment and branches. The stented segment in the proximal right coronary artery is patent. There is diffuse intimal disease in the distal right coronary artery, the PDA and the PLV without any focal stenosis. COLLATERALS: There is collateral from the right PDA towards the obtuse marginal branch as well as flow into the first and as well as second obtuse marginal branch. LEFT VENTRICULOGRAM: Left ventriculogram is not performed. CONCLUSION: 1. Patent stent to the right coronary artery. 2. Chronic occluded first and second obtuse marginal branch. 3. Moderate intimal diffuse disease in the left anterior descending artery and diagonal branch. RECOMMENDATION: In view of finding anatomy, I recommend continue medical therapy with maximizing his medical regimen. If he continues to have significant symptoms, then I would recommend referral to attempt chronic total occlusion angioplasty and stenting of the first obtuse marginal branch. Those findings and recommendation were discussed with the patient and his family and they are in full understanding and agreement. Duration of sedation is a 22 minutes. MMODL / IJN: [id number] /
--- NOTE | 2020-07-26 14:38 | LTR ---
July 26, 2020 Re: Shukri Lunaer Dear Dr. Russell: I had the opportunity to perform cardiac catheterization on Mr. Swartz at [facility] on the 26 of July and a full copy of the procedure note will be forwarded to you. In brief, he was found to have patent stent to the RCA and chronic occluded first and second obtuse marginal branches. Based on those findings, I will continue medical therapy and depending on his symptoms, if needed, he can be evaluated to undergo high-risk attempt to recanalize the first obtuse marginal branch. I will keep you updated on his progress. Thank you again for allowing me the opportunity to participate in his care. Please feel free to call for any questions. Sincerely yours, MD ARTEMIO Wiseman / AYAKA: [id number] /
[2020-07-26] MEDS ORDERED: WARFARIN 10 MG TAB PO ONE (18:00)
[2020-07-27] MEDS ORDERED: LEVOTHYROXINE 75 MCG TAB PO SCH (06:30)
[2020-07-27] MEDS ORDERED: ATORVASTATIN 40 MG TAB PO SCH (09:00)
[2020-07-27] MEDS ORDERED: LINAGLIPTIN 5 MG TABLET PO SCH (09:00)
[2020-07-27] MEDS ORDERED: atenoloL 25 MG TAB PO SCH (09:00)
[2020-07-27] MEDS ORDERED: ISOSORBIDE MONONITRATE ER 30 MG TAB.ER.24H PO SCH (09:00)
[2020-07-27] MEDS ORDERED: CLOPIDOGREL 75 MG TAB PO SCH (09:00)
[2020-07-27] MEDS ORDERED: EZETIMIBE 10 MG TAB PO SCH (09:00)
== END 2020-07-26 13:55 | disposition home or self-care (01) ==
LOC: CATHCVL 07:51
PROVIDERS: ATTEND Internal Medicine Interventional Cardiology
DX: I25.10 Atherosclerotic heart disease of native coronary artery without angina pectoris (principal); I25.82 Chronic total occlusion of coronary artery; I10 Essential (primary) hypertension; E11.9 Type 2 diabetes mellitus without complications; Z95.5 Presence of coronary angioplasty implant and graft; Z95.2 Presence of prosthetic heart valve; M19.90 Unspecified osteoarthritis, unspecified site; G47.30 Sleep apnea, unspecified; Z99.89 Dependence on other enabling machines and devices; Z87.891 Personal history of nicotine dependence; E78.2 Mixed hyperlipidemia; Z79.01 Long term (current) use of anticoagulants; Z79.84 Long term (current) use of oral hypoglycemic drugs; Z79.890 Hormone replacement therapy; Z79.02 Long term (current) use of antithrombotics/antiplatelets; Z79.82 Long term (current) use of aspirin; Z79.899 Other long term (current) drug therapy; Z88.2 Allergy status to sulfonamides
CPT/HCPCS: 93454; 80048; 85025; 85610; C1769; C1894; J2001; J3010; J1644; Q9967

== ENCOUNTER → 2020-09-11 | Outpatient (CLI) | payer OTHER ==
[2020-09-11 15:23] LABS: HCT 43.6 % (39.6-50.0); HGB 14.8 g/dL (13.0-17.0); MCH 30.6 pg (27.0-32.0); MCHC 33.9 g/dL (32.0-37.0); MCV 90.3 fL (80.0-97.0); Mean Platelet Volume 12.2 fL (9.5-12.2); Platelet Count 114 X 10*3/uL (140-440); RBC 4.83 X 10*6/uL (4.40-5.60); RDW 12.5 % (11.5-14.5); WBC 6.58 X 10*3/uL (4.50-10.00)
[2020-09-11 16:06] LABS: INR 2.25 (0.90-1.11); Prothrombin Time 23.3 sec (9.9-11.9)
[2020-09-11 18:58] LABS: African American GFR (CKD) 91.8 (60.0-200.0); Anion Gap 12.6 mmol/L (4.00-12.00); Calcium 9.8 mg/dL (8.7-10.3); Carbon Dioxide 23.4 mmol/L (21.6-31.8); Non-African American GFR(CKD) 79.2 (60.0-200.0); Potassium 4.1 mmol/L (3.5-5.5)
== END | disposition home or self-care (01) ==
LOC: LABWHC1 09:21
PROVIDERS: ATTEND Internal Medicine Interventional Cardiology
DX: I25.118 Atherosclerotic heart disease of native coronary artery with other forms of angina pectoris (principal); I25.82 Chronic total occlusion of coronary artery
CPT/HCPCS: 36415; 80048; 83735; 85027; 85610

== ENCOUNTER → 2020-11-09 | Outpatient (CLI) | payer OTHER | END | disposition home or self-care (01) | LOC: LABWHC1 08:50 | PROVIDERS: ATTEND Otolaryngology | DX: J30.89 Other allergic rhinitis (principal) | CPT/HCPCS: 36415 ==

== ENCOUNTER → 2021-04-08 | Outpatient (CLI) | payer MEDICARE ==
--- NOTE | 2021-04-08 09:38 | XR ---
EXAM TYPE: LUMBAR SPINE X RAY SERIES COMPARISON: NONE HISTORY: Low back pain TECHNIQUE: 4 views are submitted. FINDINGS: Alignment is anatomic. The pedicles are intact. The transverse processes are intact. There is hype rtrophic and degenerative change of the spine with facet arthropathy. IMPRESSION: 1. Hypertrophic and degenerative change with facet arthropathy. Suspect foraminal encroachment lower lumbar spine. Correlate with MRI as clinically warranted.
== END | disposition home or self-care (01) ==
LOC: RADXRMAIN 09:10
PROVIDERS: ATTEND Nurse Practitioner
DX: M54.40 Lumbago with sciatica, unspecified side (principal); M51.36 Other intervertebral disc degeneration, lumbar region; M47.896 Other spondylosis, lumbar region
CPT/HCPCS: 72100

== ENCOUNTER → 2021-04-30 | Outpatient (CLI) | payer MEDICARE ==
[2021-04-30 14:29] LABS: Basophils # (A) 0.07 X 10*3/uL (0.00-0.10); Basophils % (A) 1.2 %; Eosinophils # (A) 0.24 X 10*3/uL (0.04-0.35); HCT 42.6 % (39.6-50.0); HGB 14.4 g/dL (13.0-17.0); Lymphocytes # (A) 1.37 X 10*3/uL (0.90-5.00); Lymphocytes % (A) 22.7 %; MCH 31.2 pg (27.0-32.0); MCHC 33.8 g/dL (32.0-37.0); MCV 92.2 fL (80.0-97.0); Mean Platelet Volume 11.5 fL (9.5-12.2); Monocytes # (A) 0.61 X 10*3/uL (0.20-1.00); Monocytes % (A) 10.1 %; Neutrophils # (A) 3.72 X 10*3/uL (1.80-7.70); Neutrophils % (A) 61.5 %; Platelet Count 104 X 10*3/uL (140-440); RBC 4.62 X 10*6/uL (4.40-5.60); RDW 13.2 % (11.5-14.5); WBC 6.04 X 10*3/uL (4.50-10.00)
[2021-04-30 15:46] LABS: Erythrocyte Sedimentation Rate 4 mm/Hr (0-20)
[2021-04-30 19:17] LABS: Gliadin AB IgA, Deaminated NEGATIVE (NEGATIVE); Gliadin AB IgA, Unit 2.6 U/mL; Gliadin AB IgG, Deaminated NEGATIVE (NEGATIVE)
[2021-04-30 20:07] LABS: ALT 50 U/L (10-49); AST 33 U/L (14-35); Albumin 4.8 g/dL (3.8-4.9); Albumin/Globulin Ratio 2.21 (1.60-3.17); Alkaline Phosphatase 69 U/L (41-126); BUN/Creat Ratio 18.81 Ratio (12.00-20.00); C Reactive Protein <0.30 mg/dL (0.00-0.80); Calcium 9.7 mg/dL (8.7-10.3); Carbon Dioxide 21.9 mmol/L (20.0-27.5); Chloride 105 mmol/L (96-109); Chol/HDL Ratio 3.06 Ratio; Globulin 2.2 g/dL (1.6-3.3); Glucose 228 mg/dL (70-110); LDL Cholesterol,Calculated 57.3 mg/dL (0.0-131.0); Non-African American GFR(CKD) 77.7 (60.0-200.0); Potassium 4.8 mmol/L (3.5-5.5); Sodium 140 mmol/L (135-145); Total Protein 6.9 g/dL (6.2-8.2)
== END | disposition home or self-care (01) ==
LOC: LABWHC1 09:18
PROVIDERS: ATTEND Nurse Practitioner
DX: Z12.5 Encounter for screening for malignant neoplasm of prostate (principal); E78.5 Hyperlipidemia, unspecified; I10 Essential (primary) hypertension; E11.9 Type 2 diabetes mellitus without complications
CPT/HCPCS: 36415; 80053; 80061; 83516; 84153; 84439; 84443; 85025; 85652; 86140

== ENCOUNTER → 2022-06-16 | Outpatient (CLI) | payer MEDICARE ==
--- NOTE | 2022-06-16 07:44 | US ---
EXAMINATION TYPE: US duplex aorta DATE OF EXAM: 06/16/2022 COMPARISON: NONE CLINICAL HISTORY: Z13.6 ENCOUNTER FOR SCREENING FOR CARDIOVASCULAR D. no family history, no symptoms TECHNIQUE: Multiple sonographic images of the abdominal aorta are obtained. FINDINGS: EXAM MEASUREMENTS: Abdominal Aorta: Proximal: not seen due to bowel gas Mid: 2.5 x 2.4cm Distal: 2.4 x 2.4cm Bifurcation: Rt = 1.3cm Lt = 1.3cm MERCHANDISE WORKER NOTES: Ectatic appearing aorta Proximal abdominal aorta is not visualized due to overlying bowel gas. The midportion of the abdomina l aorta measures up to 2.5 cm which is ectatic. IMPRESSION: No visualized abdominal aortic aneurysm however the proximal portion is not visualized due to overlyi ng bowel gas. The midportion measures up to 2.5 cm which is considered ectatic.
== END | disposition home or self-care (01) ==
LOC: RADUSWWP 07:11
PROVIDERS: ATTEND Family Medicine
DX: Z13.6 Encounter for screening for cardiovascular disorders (principal)
CPT/HCPCS: 93979

== ENCOUNTER → 2023-11-21 | Outpatient (CLI) | payer MEDICARE ==
[2023-11-21 12:52] LABS: HCT 42.9 % (39.6-50.0); HGB 14.5 g/dL (13.0-17.0); MCH 31.1 pg (27.0-32.0); MCHC 33.8 g/dL (32.0-37.0); MCV 92.1 FL (80.0-97.0); Mean Platelet Volume 11.4 FL (9.5-12.2); NRBC Per 100 WBC 0 X 10*3/uL (0.00-0.01); Platelet Count 114 X 10*3/uL (140-440); RBC 4.66 X 10*6/uL (4.40-5.60); RDW 12.6 % (11.5-14.5); WBC 5.15 X 10*3/uL (4.50-10.00)
[2023-11-21 13:02] LABS: Blood Urea Nitrogen 20.5 mg/dL (9.0-27.0); Carbon Dioxide 20.2 mmol/L (21.6-31.8); Chloride 105 mmol/L (96-109); Potassium 4.3 mmol/L (3.5-5.5); Sodium 138 mmol/L (135-145)
== END | disposition home or self-care (01) ==
LOC: LABPAT 08:19
PROVIDERS: ATTEND Internal Medicine Interventional Cardiology
DX: Z01.812 Encounter for preprocedural laboratory examination (principal); R94.39 Abnormal result of other cardiovascular function study
CPT/HCPCS: 80051; 82565; 84520; 85027

== ENCOUNTER 2023-11-27 05:51 | Day surgery (SDC) | payer MEDICARE ==
[2023-11-25 17:11] VITALS: BMI 31.4
[~2023-11-27 05:51] MED LIST changes: -ATORVASTATIN 80 MG TAB PO STA; +HEPARIN SODIUM,PORCINE (1 ML) 2,500 UNIT in SODIUM CHLORIDE 0.9% 250 ML IRRIGATION PRN; -HEPARIN SODIUM,PORCINE 2,500 UNIT in SODIUM CHLORIDE 0.9% 250 ML IRRIGATION PRN; -SODIUM CHLORIDE 0.9% 1,000 ML in EMPTY BAG 1 BAG IV ONE
[2023-11-27 06:30] LABS: Glucose,Whole Blood 141 mg/dL (70-110)
[2023-11-27 06:39] VITALS: RESP 16; TEMP 9825
[2023-11-27 06:41] LABS: Basophils # (A) 0.1 k/uL (0-0.2); Basophils % (A) 1 %; Eosinophils # (A) 0.5 k/uL (0-0.7); Eosinophils % (A) 8 %; HCT 45.1 % (39.0-53.0); HGB 14.6 gm/dL (13.0-17.5); Lymphocytes # (A) 1.4 k/uL (1.0-4.8); Lymphocytes % (A) 20 %; MCHC 32.5 g/dL (31.0-37.0); MCV 95.6 fL (80.0-100.0); Mean Platelet Volume 9.3; Monocytes # (A) 0.6 k/uL (0-1.0); Monocytes % (A) 9 %; Neutrophils # (A) 4.1 k/uL (1.3-7.7); Neutrophils % (A) 59 %; Platelet Count 110 k/uL (150-450); RBC 4.71 m/uL (4.30-5.90); RDW 12.6 % (11.5-15.5)
[2023-11-27] MEDS: IV FLUID CONTINUATION 1,000 ML IV ONE (06:42)
[2023-11-27] MEDS: SODIUM CHLORIDE 0.9% 1,000 ML in EMPTY BAG 1 BAG IV SCH (06:42)
[2023-11-27] MEDS ORDERED: LIDOCAINE 1% INJ 10MG/ML (20 ML MDV) ONE (07:12)
[2023-11-27] MEDS ORDERED: VERAPAMIL 2.5 MG/ML 2 ML AMP ONE (07:12)
[2023-11-27] MEDS ORDERED: fentaNYL (PF) 50 MCG/ML 2 ML AMP ONE (07:12)
[2023-11-27 07:14] LABS: INR 1.2 (<1.2); Prothrombin Time 12.4 sec (10.0-12.5)
[2023-11-27] MEDS: fentaNYL (PF) 50 MCG/1 ML VIAL IVP ONE (07:54)
[2023-11-27] MEDS: LIDOCAINE 1% INJ 10MG/ML (20 ML MDV) SQ ONE (07:54)
[2023-11-27] MEDS: VERAPAMIL SYRINGE (5 MG/10 ML) INTRAARTER ONE (07:56)
[2023-11-27] MEDS: HEPARIN SODIUM 1,000 UN/ML (10ML VL) IVP ONE ×2 (08:00→08:14)
[2023-11-27] MEDS ORDERED: CLOPIDOGREL 75 MG TAB ONE (08:13)
[2023-11-27] MEDS: CLOPIDOGREL 75 MG TAB PO ONE (08:17)
[2023-11-27] MEDS: IOPAMIDOL-370 200ML BTL INJ ONE (08:50)
[2023-11-27] MEDS ORDERED: WARFARIN 10 MG TAB PO SCH (09:00)
[2023-11-27] MEDS ORDERED: MAG HYDROX/AL HYDROX/SIMETH 30 ML CUP PO PRN (09:03)
[2023-11-27] MEDS ORDERED: NITROGLYCERIN SL TABS 0.4 MG TAB SUBLINGUAL PRN (09:03)
[2023-11-27] MEDS ORDERED: ZOLPIDEM 5 MG TAB PO PRN (09:03)
[2023-11-27] MEDS ORDERED: RX INFO: IV CONTRAST WAS GIVEN 1 EACH MISC MISCELLANE PRN (09:03)
[2023-11-27] MEDS ORDERED: ATROPINE SULFATE 0.1 MG/ML 10ML SYRINGE IV PRN (09:03)
[2023-11-27] MEDS ORDERED: SODIUM CHLORIDE 0.9% 1,000 ML in EMPTY BAG 1 BAG IV SCH (09:15)
--- NOTE | 2023-11-27 09:15 | P.CARDCATH ---
Date of Procedure: 11/27/23 Description of Procedure: Cardiac Catheterization: The patient is a 68-year-old male with a known history of CAD, status post aortic valve replacement and multiple stenting who presented with an abnormal MPI and transient ischemic dilatation of the left ventricle. Recommendations were made regarding cardiac catheterization, the risks and the complications were discussed with the patient who is in full understanding and agreement. Procedure Description: Patient was brought to hospital laboratory technician in fasting semi-sedated state after receiving Fentanyl and Benadryl achieiving moderate conscious sedated state. Using Xylocaine Anesthesia and modified Seldinger technique, a 6-Egyptian sheath was introduced in the right radial artery . Subsequently, selective coronary angiography was performed using a 5-Egyptian 3.5 bend right Shreya and 6 Egyptian CLS 3.5 guiding catheter. Attempt to have a good cannulation of the left main using a 5 Egyptian 3.5 and 4 bend Shreya were unsuccessful. Multiple views of the coronary artery including hemiaxial views were obtained. PCI: Using the CLS 3.5 guiding catheter and after cannulating the left main a 0.014 BMW J-wire was positioned in the distal OM1. Subsequently a 2.5 x 12 mm NC trek balloon was advanced and 2 inflation at 8 margot were done. After removing the balloon a [place] eye IVUS catheter was introduced and imagings were obtained. After removing the catheter a 3.25 x 18 mm Xience blas point stent was deployed at 16 margot and subsequently 3.5 x 12 mm Xience blas point stent was deployed distal to the first 1 at 16 margot. Repeat IVUS imaging was performed and subsequently a 3.25 x 15 mm NC trek balloon was advanced and multiple inflation at 10 margot were done. Following that the wire was removed images were obtained and revealed stable successful stenting. Following that, catheter and sheath were removed. Hemostasis was obtained with deployment of vascular band . There was no immediate complication. Patient was returned to room in stable condition. Of note, the patient received a total of 7000 units of intravenous heparin as well as intra-arterial verapamil. He received an oral loading dose of clopidogrel. He had no chest discomfort or significant EKG changes with the inflations. Findings: Left main: This is a short size vessel, bifurcating into the LAD and left circumflex, left main has no obstructive disease LAD: This is a large size vessel reaching to the apex giving rise to 2 small diagonal branch. The LAD in the mid segment has diffuse intimal disease with small caliber vessel but no discrete lesion Left circumflex: This is a large nondominant vessel giving rise to 2 obtuse marginal branch. The first 1 is large in caliber. Both obtuse marginal branch are stented from the proximal segment. The first obtuse marginal branch is very proximal and has a 99% stenosis in the midsegment with in-stent restenosis. The rest of the vessel has intimal in-stent restenosis proximally but no high-grade stenosis. The proximal left circumflex after the takeoff of the first obtuse marginal branch has a 30 to 40% in-stent restenosis the rest of the vessel has no high-grade stenosis RCA: This is a large dominant vessel, bifurcating distally to PDA and PLV the stented segment in the proximal right coronary artery is patent with no evidence of significant in-stent restenosis. There is diffuse intimal disease in the distal PDA and PLV. Left Ventriculogram: Not performed, fluoroscopy showed normal function of the dual disc aortic valve. Conclusion: 1. Significant in-stent restenosis of the OM1 2. Moderate in-stent restenosis of the proximal left circumflex 3. Mild disease in the RCA and distal LAD 4. Successful stenting of the OM1 with reduction of stenosis from 99% to 0% with IVUS imaging and LISA-3 flow Recommendations: The patient will continue on aspirin and Plavix for 1 week then he will stop the aspirin and continue Plavix and Coumadin for 6 months in addition to aggressive coronary risks modification attempting to maintain LDL below 70 mg/dL. The findings and the recommendations were discussed with the patient and the family and they were in full understanding and agreement. Duration of sedation is 68 minutes.
[2023-11-27] MEDS: HEPARIN SODIUM 1,000 UN/ML (10ML VL) ONE (10:20)
[2023-11-27] MEDS: HEPARIN SODIUM,PORCINE (1 ML) 2,500 UNIT in SODIUM CHLORIDE 0.9% 250 ML IRRIGATION ONE (10:25)
[2023-11-27] MEDS: HEPARIN SODIUM,PORCINE 10,000 UNIT in SODIUM CHLORIDE 0.9% 1,000 ML IRRIGATION ONE (10:26)
[2023-11-27 13:57] VITALS: BP 152/72; PULSE 65
[2023-11-28] MEDS ORDERED: ATORVASTATIN 20 MG TAB PO SCH (09:00)
[2023-11-28] MEDS ORDERED: ASPIRIN 81 MG PO SCH (09:00)
[2023-11-28] MEDS ORDERED: LEVOTHYROXINE 75 MCG TAB PO SCH (09:00)
[2023-11-28] MEDS ORDERED: CLOPIDOGREL 75 MG TAB PO SCH (09:00)
[2023-11-28] MEDS ORDERED: EZETIMIBE 10 MG TAB PO SCH (09:00)
== END 2023-11-27 13:05 | disposition home or self-care (01) ==
LOC: CATHCVL 05:51
PROVIDERS: ATTEND Internal Medicine Interventional Cardiology
DX: T82.855A Stenosis of coronary artery stent, initial encounter (principal); I25.10 Atherosclerotic heart disease of native coronary artery without angina pectoris; I10 Essential (primary) hypertension; E78.5 Hyperlipidemia, unspecified; E11.9 Type 2 diabetes mellitus without complications; I48.0 Paroxysmal atrial fibrillation; G47.30 Sleep apnea, unspecified; Z95.2 Presence of prosthetic heart valve; Z87.891 Personal history of nicotine dependence; Z88.2 Allergy status to sulfonamides; Z79.899 Other long term (current) drug therapy; Z98.890 Other specified postprocedural states; Z79.84 Long term (current) use of oral hypoglycemic drugs; Z79.01 Long term (current) use of anticoagulants; Y83.8 Other surgical procedures as the cause of abnormal reaction of the patient, or of later complication, without mention of misadventure at the time of the procedure
CPT/HCPCS: 92978; 93454; 85025; 85610; 99152; 99153 ×2; C9600; C1769 ×3; C1887; C1894; C1753; C1874 ×2; C1725 ×2; J1644 ×3; J2001; J3010; Q9967

== ENCOUNTER → 2024-11-29 | Outpatient (CLI) | payer MEDICARE ==
[2024-11-29 15:52] VITALS: BP 139/80; PULSE 82; RESP 16; TEMP 98.2
--- NOTE | 2024-11-29 16:27 | P.SLEEP ---
History of Present Illness H&P Date: 11/29/24 This is a 69-year-old male patient with known history of obstructive sleep apnea, diagnosed back [place] [address] Yoo and the patient was offered a CPAP machine. The patient has been very compliant with CPAP therapy and the patient has been maintained on CPAP therapy over the past years and his treatment has been successful and the patient has seen good response and improvement in sleep quality while being on treatment. He currently has a [employer] S9 series which has been essentially old and outdated and malfunctioning. For that reason, the patient came in for a reevaluation. Noted, the patient sleep quality has recently became more impaired as the patient is going through a divorce. Is hav ing some difficulty maintaining sleep. He is going to bed at various times and he is time to go to bed ranges between 8 PM, 10 PM and midnight and he gets up early out of bed at around 3 AM in the morning. He does not take any naps during the day. He is averaging around 4 to 5 hours of sleep. He seems to be stressed out and quite anxious. He has history of snoring. He has no major fatigue or sleepiness as long as he wears the CPAP machine. He is currently using his machine every night and based on compliance data collected on his machine, over the past 30 days, the patient has used the machine every night and he is achieved more than 4 hours of usage 28 out of 30 days. Is been averaging about 6.7 hours of CPAP use per night with a leak of 22 L/min. Occasional restlessness in his lower extremities. No grinding. Denies waking up choking or gasping for air. No heartburn. No naps during the day. His current [place] score is at 9. The patient sleeps on his stomach and is currently using the Mitchell fx nasal pillows. No recent weight gain. No substance abuse. He is a chronic smoker. Review of Systems Constitutional: Denies chills, Denies fever Eyes: denies as per HPI, denies blurred vision, denies bulging eye, denies decreased vision, denies diplopia, denies discharge, denies dry eye, denies irritation, denies itching, denies pain, denies photophobia, denies loss of peripheral vision, denies loss of vision, denies tunnel vision/blind spots Ears: deny: decreased hearing, ear discharge, earache, tinnitus Ears, nose, mouth and throat: Reports as per HPI Breasts: absent: as per HPI, gynecomastia Cardiovascular: Reports as per HPI Respiratory: Reports sleep apnea, Reports snoring Gastrointestinal: Reports as per HPI Genitourinary: Reports as per HPI Musculoskeletal: Reports as per HPI Musculoskeletal: absent: ankle pain, ankle stiffness, ankle swelling, as per HPI, elbow pain, elbow stiffness, elbow swelling, foot pain, foot stiffness, foot swelling, hand pain, hand stiffness, hand swelling, hip pain, hip stiffness, hip swelling, knee pain, knee stiffness, knee swelling, shoulder pain, shoulder stiffness, shoulder swelling, wrist pain, wrist stiffness, wrist swelling Integumentary: Reports as per HPI Neurological: Reports as per HPI Psychiatric: Reports as per HPI Hematologic/Lymphatic: Reports as per HPI Allergic/Immunologic: Reports as per HPI Past Medical History Past Medical History: Atrial Fibrillation, Coronary Artery Disease (CAD), Chest Pain / Angina, Diabetes Mellitus, Hyperlipidemia, Liver Disease, Myocardial Infarction ([place]), Osteoarthritis (OA), Sleep Apnea/CPAP/BIPAP, Thyroid Disorder Additional Past Medical History / Comment(s): hx of BLOOD CLOT LT EYE, FATTY LIVER, " states he had a staphylococcal infection that ("lasted for several years") at the time of his cardiac valve surgery , rash on back, SEPSIS 2013, USES C PAP Last Myocardial Infarction Date:: unknown History of Any Multi-Drug Resistant Organisms: None Reported MDRO Source:: RIGHT ELBOW- STAPH INFECTION culture shows MSSA Past Surgical History: Adenoidectomy, Cardiac Valve Replacement, Cholecystectomy, Heart Catheterization, Heart Catheterization With Stent, Tonsillectomy Additional Past Surgical History / Comment(s): MECHANICAL AORTIC VALVE 1985 , left eye tear duct surgery, left cataract surgery , right arm with plate and screws, 2 cardiac stent Past Anesthesia/Blood Transfusion Reactions: No Reported Reaction, Motion Sickness Additional Past Anesthesia/Blood Transfusion Reaction / Comment(s): severe pain for a couple months post op tear duct surgery Date of Last Stent Placement:: 11/23/19 Past Psychological History: No Psychological Hx Reported Additional Psychological History / Comment(s): . Smoking Status: Former smoker Past Alcohol Use History: Rare Additional Past Alcohol Use History / Comment(s): started smoking at age 31 smokes 2-4 cig a day-06/2020 Past Drug Use History: None Reported - Past Family History Father Family Medical History: Cancer, Coronary Artery Disease (CAD), Diabetes Mellitus, GERD/Reflux, Hyperlipidemia, Hypertension, Sleep Apnea/CPAP/BIPAP Additional Family Medical History / Comment(s): Prostate cancer. restless legs, arthritis unknown type, angina Medications and Allergies Home Medications Medication Instructions Recorded Confirmed Type Levothyroxine Sodium [Synthroid] 75 mcg PO DAILY 07/22/16 11/29/24 History metFORMIN HCL [Glucophage] 500 mg PO BID 07/22/16 11/29/24 History Warfarin [Coumadin] 10 mg PO DAILY 11/18/19 11/29/24 History Ezetimibe [Zetia] 10 mg PO DAILY 11/23/19 11/29/24 History Nitroglycerin Sl Tabs [Nitrostat] 0.4 mg SL DIRECTED PRN 07/25/20 11/29/24 History Aspirin [Adult Low Dose Aspirin EC] 81 mg PO DAILY 11/25/23 11/29/24 History Dulaglutide [Trulicity] 1.5 mg SQ FR 11/25/23 11/25/23 History Rosuvastatin [Crestor] 10 mg PO DAILY 11/25/23 11/29/24 History Clopidogrel [Plavix] 75 mg PO DAILY #90 tablet 11/27/23 11/29/24 Rx Allergies Allergy/AdvReac Type Severity Reaction Status Date / Time Sulfa (Sulfonamide Allergy Rash/Hives,SOB, Verified 11/25/23 16:44 Antibiotics) rapid heartbeat Physical Exam Vitals: Vital Signs Temp Pulse Resp BP Pulse Ox 11/29/24 15:50 98.2 F 82 16 139/80 97 Intake and Output 11/29/24 11/29/24 11/29/24 06:59 14:59 22:59 Other: Weight 93.44 kg The patient appeared well nourished and normally developed. Vital signs as documented. The patient has a Mallampati class IV. The patient has a body mass index of 29.5 his current weight is 206 Head exam is unremarkable. No scleral icterus or corneal arcus noted. Neck is without jugular venous distension, thyromegaly, or carotid bruits. Carotid upstrokes are brisk bilaterally. Lungs are clear to auscultation and percussion. Cardiac exam reveals the PMI to be normally sized and situated. Rhythm is regular. First and second heart sounds normal. No murmurs, rubs or gallops. Abdominal exam reveals normal bowel sounds, no masses, no organomegaly and no aortic enlargement. Extremities are nonedematous and both femoral and pedal pulses are normal. Examination of the skin revealed no evidence of significant rashes, suspicious appearing nevi or other concerning lesions. Neurologically, the patient is awake and alert and the patient does not have any focal neurological deficit. Cranial nerves are essentially intact. Assessment and Plan Plan: Obstructive sleep apnea, diagnosed back in 2012. Original polysomnography is not available. The patient is currently being treated with CPAP therapy at a pressure of 12 cm of water. He has been very compliant over the years and the patient has benefited from the treatment. He is committed to long-term CPAP therapy and the patient is hoping to get a new CPAP unit. Chronic hypersomnia, improved with CPAP therapy Sleep induction/maintenance insomnia, mainly due to social factors as the patient is going through a divorce Aortic valve replacement, mechanical valve, replaced in 1985 and the patient is on long-term anticoagulants with warfarin CVA Chronic back pain Diabetes mellitus type 2 Hypothyroidism Hyperlipidemia Coronary artery disease Plan The patient is a longtime CPAP user. The patient has been compliant to CPAP therapy in the past. Compliance check was done today. His machine is a [employer] S9 series and needs to be updated. Based on that, I am ordering a polysomnography on this patient to reestablish diagnosis and further treatment needs to follow. Once diagnosis confirmed, we should be able to order a new CPAP machine for this patient utilizing the same pressure settings I will make further adjustments accordingly. Will keep him on the Mitchell fx nasal pillows. Will continue to follow. Sleep Note - Sleep Data ESS Total: 9 - Sleep Note Sleep Note: Temperature: 98.2 F Pulse Rate: 82 Respiratory Rate: 16 Blood Pressure: 139/80 SpO2: 97 Height: 5 ft 10 in Weight: 93.44 kg BMI: Neck Circumference: 17
== END ==
LOC: 3 N SLEEP 15:01
PROVIDERS: ATTEND Internal Medicine Critical Care Medicine
DX: G47.33 Obstructive sleep apnea (adult) (pediatric) (principal); I63.9 Cerebral infarction, unspecified; G89.29 Other chronic pain; M54.9 Dorsalgia, unspecified; E11.9 Type 2 diabetes mellitus without complications; E03.9 Hypothyroidism, unspecified; I25.10 Atherosclerotic heart disease of native coronary artery without angina pectoris; E78.5 Hyperlipidemia, unspecified; F17.200 Nicotine dependence, unspecified, uncomplicated; Z99.89 Dependence on other enabling machines and devices; Z88.2 Allergy status to sulfonamides
CPT/HCPCS: 99211